=== PATIENT | male | born 1945 ===

== ENCOUNTER 2018-11-03 22:43 | Inpatient (IN) | payer MEDICAID, MEDICARE ==
--- NOTE | 2018-11-04 00:43 | ED PDOC ---
Lower Extremity Pain/Injury Time Seen by Provider: 11/04/18 00:15 Chief Complaint (Nursing): Lower Extremity Problem/Injury Chief Complaint (Provider): left heel pain History Per: Patient, Family History/Exam Limitations: no limitations Onset/Duration Of Symptoms: Days (1 week) Current Symptoms Are (Timing): Still Present Additional Complaint(s): 73 y/o male history of diabetes presents for evaluation of left heel pain x 1 week. Patient states he has been in [place] doing work and feels his shoes were rubbing against his heel; states since then he notices worsening pain with yellow drainage. Patient states area also feels numb as of today. Denies fever, nausea/vomiting, chest pain, shortness of breath, palpitations, changes in bowel movements, urinary symptoms. Past Medical History Reviewed: Historical Data, Nursing Documentation, Vital Signs Vital Signs: Last Vital Signs Temp 98.5 F 11/03/18 22:52 Pulse 92 H 11/03/18 22:52 Resp 16 11/03/18 22:52 BP 189/65 H 11/03/18 22:52 Pulse Ox 98 11/03/18 22:52 - Medical History PMH: Diabetes, HTN, Hypercholesterolemia, Pancreatitis, Pneumonia ([facility] OCTOBER 2017), Chronic Kidney Disease (RENAL INSUFFICIENCY) - Surgical History Surgical History: Endoscopy - Family History Family History: States: Unknown Family Hx - Immunization History Hx Tetanus Toxoid Vaccination: Yes Hx Influenza Vaccination: No Hx Pneumococcal Vaccination: Yes - Home Medications Home Medications: Ambulatory Orders Medication Instructions Recorded Sitagliptin Phos/Metformin HCl 1 tab PO BID 03/27/16 [Janumet 50-1,000 mg Tablet] Insulin Detemir [Levemir] 20 unit SC DAILY 01/10/18 Brinzolamide [Azopt] 1 drop RIGHTEYE Q12 11/04/18 Insulin Lispro [humALOG] 10 unit SC AC 11/04/18 Latanoprost [Xalatan] 1 drop EACHEYE HS 11/04/18 Losartan [Cozaar] 25 mg PO DAILY 11/04/18 - Allergies Allergies/Adverse Reactions: Allergies Allergy/AdvReac Type Severity Reaction Status Date / Time No Known Allergies Allergy Verified 11/04/18 03:40 Review of Systems ROS Statement: Except As Marked, All Systems Reviewed And Found Negative Musculoskeletal: Positive for: Foot Pain Physical Exam - Reviewed Nursing Documentation Reviewed: Yes Vital Signs Reviewed: Yes - Physical Exam Appears: Positive for: Well, Non-toxic, No Acute Distress Head Exam: Positive for: ATRAUMATIC, NORMAL INSPECTION, NORMOCEPHALIC Skin: Positive for: Normal Color Eye Exam: Positive for: Normal appearance ENT: Positive for: Normal ENT Inspection Cardiovascular/Chest: Positive for: Regular Rate, Rhythm Respiratory: Positive for: Normal Breath Sounds Pulses-Dorsalis Pedis (L): 2+ Pulses-Dorsalis Pedis (R): 2+ Pulses-Post. Tibialis (L): 2+ Pulses-Post. Tibialis (R): 2+ Extremity: Positive for: Normal ROM, Pedal Edema (left. [id number] necrotic ulceration posterior left heel with + purulent drainage noted. + surrounding tenderness, edema.), Other Neurological/Psych: Positive for: Awake, Alert, Oriented (x3) - Laboratory Results Result Diagrams: 11/04/18 00:55 11/04/18 00:55 - ECG ECG: Positive for: Viewed By Me (reviewed by ED attending) ECG Rhythm: Positive for: Sinus Rhythm O2 Sat by Pulse Oximetry: 98 - Radiology X-Ray: Viewed By Me X-Ray Interpretation: No Acute Disease - Progress ED Course And Treament: -accucheck -cbc -cmp -lactic acid -blood cultures -ekg -left foot xray -left lower extremity venous duplex -cxr -IV NS bolus -IV insulin -PO tylenol -podiatry consult EXAM: US for Deep Venous Thrombosis, left Lower Extremity. CLINICAL HISTORY: Lt leg swelling and pain, foot bandaged with pain TECHNIQUE: Real-time ultrasound scan of the veins of the left lower extremity with color Doppler flow, spectral waveform analysis and compression. COMPARISON: None provided. FINDINGS: DEEP VEINS: The common femoral, superficial femoral, and popliteal veins are echolucent and compressible. There is normal color Doppler flow throughout. The visualized calf veins appear patent. SUPERFICIAL VEINS: The visualized greater saphenous vein is patent. SOFT TISSUES: No popliteal fossa cyst or other abnormalities. IMPRESSION: No deep venous thrombosis evident on left lower extremity examination Patient evaluated by Dr. Bunrett, podiatry resident on-call, recommends admission for IV abx. IV Vanco, IV zosyn ordered in ED Case discussed with Juan Carlos Salazar NP, medical service on-call, for admission Disposition - Clinical Impression Clinical Impression: Hyperglycemia, Diabetic infection of left foot - Disposition Disposition Time: 02:00 Condition: FAIR
[2018-11-04 01:17] LABS: BASO # 0.1 K/uL (0.0-0.2); BASO % 0.7 % (0.0-2.0); EOS # 0.1 K/uL (0.0-0.7); HEMOGLOBIN 12.6 g/dL (12.0-18.0); LYMPH # 2.3 K/uL (1.0-4.3); MEAN CELL VOLUME 87.2 fl (80.0-94.0); MEAN CORPUSCULAR HEMOGLOBIN 29.8 pg (27.0-31.0); MEAN CORPUSCULAR HGB CONC 34.2 g/dL (33.0-37.0); MEAN PLATELET VOLUME 8.4 fl (7.2-11.7); MONO # 0.5 K/uL (0.0-0.8); MONO % 7.4 % (0.0-10.0); NEUT # 4.2 K/uL (1.8-7.0); NEUT % 57.9 % (50.0-75.0); RBC 4.23 Mil/uL (4.40-5.90); RED CELL DISTRIBUTION WIDTH 14.7 % (11.5-14.5); WHITE BLOOD COUNT 7.3 K/uL (4.8-10.8)
[2018-11-04] MEDS ORDERED: Sodium Chloride 0.9% 1,000 ML IV STA (01:27)
[2018-11-04 01:28] LABS: ALB/GLOB RATIO 1.2 (1.0-2.1); ALBUMIN 4.1 g/dL (3.5-5.0); ALT/SGPT 18 U/L (21-72); AST/SGOT 26 U/L (17-59); BLOOD UREA NITROGEN 24 mg/dl (9-20); CALCIUM 9.3 mg/dL (8.4-10.2); GFR NON-AFRICAN AMERICAN > 60
[2018-11-04] MEDS ORDERED: Piperacillin/Tazobact 3.375 GM in Sodium Chloride 0.9% 100 ML IV ONE (01:41)
[2018-11-04] MEDS ORDERED: Piperacillin/Tazobact 3.375 gm Inj IVPB ONE ×2 (01:48→23:06)
[2018-11-04] MEDS ORDERED: Vancomycin 1 g Inj ONE (01:48)
--- NOTE | 2018-11-04 01:52 | CP.PCM.CON ---
History of Present Illness - History of Present Illness History of Present Illness: Podiatry consult note for Dr. Fernandez, 73 y/o male patient with PMHx of HTN, Hypercholesterolemia, Pancreatitis, Chronic Kidney Disease was seen and evaluated in the Emergency Department due to complaints of left heel ulceration. Patient states he noticed the ulcer to the heel about 1 week ago while in [facility]. Patient states he works there and noticed his shoes rubbing against the wound. Patient states he noticed worsening pain with purulent discharge. Patient went to a medical clinic in [facility] and was given a local injection. Patient denies any antibiotic use. Patient returned from his 8 hour journey and came directly to the airport. Patient complains of subjective fevers, cough and chills, but denies nausea/vomiting, chest pain, shortness of breath, palpitations, changes in bowel movements, or urinary symptoms. PMHx: as above PSHx: Endoscopy Allergies: NKDA Review of Systems - Review of Systems All systems: reviewed and no additional remarkable complaints except Review of Systems: As per HPI Past Patient History - Past Medical History & Family History Past Medical History?: Yes - Past Social History Smoking Status: Never Smoked - CARDIAC Hx Hypercholesterolemia: Yes Hx Hypertension: Yes - PULMONARY Hx Pneumonia: Yes (STATE OCTOBER 2017) - HEENT Hx HEENT Problems: Yes Hx Cataracts: Yes (IOL) Other/Comment: RETINA DISEASE RIGHT EYE VERY POOR VISION - RENAL Hx Chronic Kidney Disease: Yes (RENAL INSUFFICIENCY) - ENDOCRINE/METABOLIC Hx Endocrine Disorders: Yes Hx Diabetes Mellitus Type 2: Yes - GASTROINTESTINAL Hx Pancreatitis: Yes - GENITOURINARY/GYNECOLOGICAL Hx Genitourinary Disorders: Yes Hx Prostate Problems: Yes - PSYCHIATRIC Hx Substance Use: No - ANESTHESIA Hx Anesthesia: No Meds Allergies/Adverse Reactions: Allergies Allergy/AdvReac Type Severity Reaction Status Date / Time No Known Allergies Allergy Verified 11/04/18 03:40 - Medications Medications: Current Medications Sodium Chloride (Sodium Chloride 0.9%) 1,000 mls @ 1,000 mls/hr IV .Q1H STA Stop: 11/04/18 02:26 Vancomycin HCl 1 gm/ Sodium (Chloride) 250 mls @ 166.667 mls/hr IVPB STAT STA; Protocol Stop: 11/04/18 03:10 Piperacillin Sod/Tazobactam (Sod 3.375 gm/ Sodium Chloride) 100 mls @ 100 mls/hr IV ONCE ONE; Protocol Stop: 11/04/18 02:40 Physical Exam - Constitutional Appears: Well, Non-toxic, No Acute Distress - Head Exam Head Exam: ATRAUMATIC, NORMOCEPHALIC - Extremities Exam Additional comments: B/L Lower Extremity Exam: VASC: DP and PT 1/4 bilaterally likely secondary to edema, Cap refill < 3 secon ds to all digits, moderate +2 pitting edema noted to the left lower extremity, positive jovanna wound erythema noted. Temperature gradient warm to warm from proximal to distal on the left NEURO: Protective sensation diminished bilaterally DERM: deep tissue injury ulceration noted to the left heel measuring approximately 4.3 cm X 3 cm X 0.1 cm ulcer with 80% necrotic base and fibro- granular wound edges, positive malodor, positive purulent drainage, no probe to bone, no other lesions or signs of infection noted to bilateral lower extremities MSK: Muscle power 4/5 to all groups b/l, no gross deformities appreciated - Neurological Exam Neurological exam: Alert, Oriented x3 - Psychiatric Exam Psychiatric exam: Normal Affect, Normal Mood Results - Vital Signs Recent Vital Signs: Last Vital Signs Temp 98.5 F 11/03/18 22:52 Pulse 92 H 11/03/18 22:52 Resp 16 11/03/18 22:52 BP 189/65 H 11/03/18 22:52 Pulse Ox 98 11/04/18 00:45 - Labs Result Diagrams: 11/04/18 00:55 11/04/18 00:55 Labs: Laboratory Results - last 24 hr 11/04/18 11/04/18 11/04/18 00:55 00:55 00:55 WBC 7.3 RBC 4.23 L Hgb 12.6 Hct 36.9 MCV 87.2 MCH 29.8 MCHC 34.2 RDW 14.7 H Plt Count 243 MPV 8.4 Neut % (Auto) 57.9 Lymph % (Auto) 32.0 [place] % (Auto) 7.4 Eos % (Auto) 2.0 Baso % (Auto) 0.7 Neut # (Auto) 4.2 Lymph # (Auto) 2.3 [place] # (Auto) 0.5 Eos # (Auto) 0.1 Baso # (Auto) 0.1 Sodium 133 Potassium 5.4 H Chloride 99 Carbon Dioxide 25 Anion Gap 14 BUN 24 H Creatinine 1.1 Est GFR ( Amer) > 60 Est GFR (Non-Af Amer) > 60 Random Glucose 474 H* Lactic Acid 1.4 Calcium 9.3 Total Bilirubin 0.9 AST 26 ALT 18 L Alkaline Phosphatase 123 Total Protein 7.4 Albumin 4.1 Globulin 3.4 Albumin/Globulin Ratio 1.2 Assessment & Plan - Assessment and Plan (Free Text) Assessment: 72 year old male patient seen and evaluated for left heel deep tissue injury and ulceration Plan: Patient seen and evaluated Plan discussed with Dr. Fernandez Chart, labs and vitals reviewed- elevated blood pressure and blood sugar upon arrival to ED, afebrile, absent leukocytosis WBC 7.3 ESR 62 (11/04/18) Ordered Left foot X-ray: no overt osteo noted, degenerative changes seen and to be clinically correlated Lower Extremity US: no deep venous thrombosis seen Duplex Bilaterally: normal duplex Obtained wound culture and gram stain Ordered Left foot MRI w/o contrast Continue IV Abx Continue management per primary team Left heel dressed with xerform, DSD; Ordered SSD for future debridements Will continue to follow while patient is in-house Possible debridement in [place] pending MRI result Thank you for this consult - Date & Time Date: 11/04/18 Time: 14:36
[2018-11-04] MEDS ORDERED: Insulin Regular 100 units/ml IV STA ×2 (03:37→22:27)
--- NOTE | 2018-11-04 08:29 | RAD ---
Date of service: 11/04/2018 HISTORY: admit COMPARISON: No prior. TECHNIQUE: 1 view obtained. FINDINGS: LUNGS: No active pulmonary disease. PLEURA: No significant pleural effusion identified, no pneumothorax apparent. CARDIOVASCULAR: No aortic atherosclerotic calcification present. Normal cardiac size. No pulmonary vascular congestion. OSSEOUS STRUCTURES: No significant abnormalities. VISUALIZED UPPER ABDOMEN: Normal. OTHER FINDINGS: None. IMPRESSION: No acute cardiopulmonary disease appreciated.
--- NOTE | 2018-11-04 08:37 | RAD ---
Date of service: 11/04/2018 PROCEDURE: Left Foot Radiographs. HISTORY: ulcer COMPARISON: None. TECHNIQUE: 3 views obtained. FINDINGS: BONES: No definite acute fracture. No dislocation. Gross degenerative changes seen the tibiotalar joint with partial flattening of the talar dome. Remaining joints reflect only limited degenerative related cortical sclerosis throughout the hindfoot midfoot and forefoot segments. No overt emphysematous soft tissue changes or deformity to identified patient's foot ulcer. No periosteal reaction or erosive changes are appreciated to suggest osteomyelitis in the periphery of the foot. Gross degenerative changes are appreciated at the anterior portion of the tibiotalar joint nevertheless. Clinically correlate further. Extensive vascular callus dorsal and plantar foot as well as anterior and posterior ankle soft tissues. JOINTS: As above. SOFT TISSUES: As above. OTHER FINDINGS: None. IMPRESSION: No overt pattern of osteomyelitis in the periphery of the right left foot although gross degenerative changes seen at the tibiotalar joint which are felt to be chronic. Clinically correlate further.
--- NOTE | 2018-11-04 13:01 | US ---
Date of service: 11/04/2018 HISTORY: pain, swelling. PRIORS: None. FINDINGS: 2-D, color and duplex Doppler analysis of the lower extremity venous circulation using routine protocol from the femoral veins through the popliteal veins. Venous compressibility: Normal. Flow and augmentation patterns: Normal. Visualized veins upper third of calf: Normal. López cyst: None. IMPRESSION: No sonographic or Doppler evidence for DVT in left lower extremity. Concordant findings (preliminary report) provided by JOHN BLACK.
--- NOTE | 2018-11-04 13:25 | US ---
Date of service: 11/04/2018 PROCEDURE: Duplex ultrasound of the bilateral lower extremity arteries. HISTORY: Left foot pain 1 week duration. No history of trauma assess vascular supply COMPARISON: None available. TECHNIQUE: Grayscale and duplex Doppler evaluation of the bilateral common femoral, superficial femoral, popliteal, posterior tibial and dorsalis pedis arteries was performed.. FINDINGS: RIGHT LOWER EXTREMITY: RIGHT COMMON FEMORAL ARTERY: Widely patent. Maximal flow velocity of 116.1 cm/s. RIGHT SUPERFICIAL FEMORAL ARTERY: Widely patent. Maximal flow velocity of 106.4 cm/s. RIGHT POPLITEAL ARTERY:Widely patent. Maximal flow velocity of 86.4 cm/s. RIGHT POSTERIOR TIBIAL ARTERY: Widely patent. Maximal flow velocity of 65.9 cm/s. RIGHT DORSALIS PEDIS ARTERY: Widely patent. Maximal flow velocity of 46.5 cm/s. LEFT LOWER EXTREMITY: LEFT COMMON FEMORAL ARTERY: Widely patent. Maximal flow velocity of 115.0 cm/s. LEFT SUPERFICIAL FEMORAL ARTERY: Widely patent. Maximal flow velocity of 06.0 cm/s. LEFT POPLITEAL ARTERY:Widely patent. Maximal flow velocity of 82.1 cm/s. LEFT POSTERIOR TIBIAL ARTERY: Widely patent. Maximal flow velocity of 101.7 cm/s. LEFT DORSALIS PEDIS ARTERY: Widely patent. Maximal flow velocity of 58.9 cm/s. OTHER FINDINGS: None. IMPRESSION: Normal Duplex Doppler of the bilateral lower extremity arteries.
--- NOTE | 2018-11-04 21:08 | CARD ---
APPROVED REPORT Date of service: 11/04/2018 EKG Measurement Heart [id number] <Conclusion> Normal sinus rhythm Normal ECG
[2018-11-04] MEDS ORDERED: Insulin Regular 100 units/ml ONE (21:26)
[2018-11-04] MEDS ORDERED: Insulin Regular 100 units/ml SC SCH (22:00)
[2018-11-04] MEDS: Piperacillin/Tazobact 3.375 GM in Sodium Chloride 0.9% 100 ML IVPB SCH (23:10)
[2018-11-05 00:39] VITALS: BMI 28.2
[2018-11-05] MEDS: Piperacillin/Tazobact 3.375 GM in Sodium Chloride 0.9% 100 ML IVPB SCH ×4 (05:17→22:00)
[2018-11-05 06:46] LABS: ALB/GLOB RATIO 1.1 (1.0-2.1); ALBUMIN 3.3 g/dL (3.5-5.0); ALT/SGPT 25 U/L (21-72); AST/SGOT 17 U/L (17-59); BLOOD UREA NITROGEN 24 mg/dl (9-20); CALCIUM 8.9 mg/dL (8.4-10.2); GFR NON-AFRICAN AMERICAN 60; HDL CHOLESTEROL 33 MG/DL (30-70)
[2018-11-05] MEDS: Insulin Regular 100 units/ml SC SCH ×4 (06:54→21:08)
[2018-11-05 06:55] LABS: BASO % 0.7 % (0.0-2.0); EOS # 0.3 K/uL (0.0-0.7); EOS % 3.6 % (0.0-4.0); HEMOGLOBIN 11.8 g/dL (12.0-18.0); LYMPH # 2.5 K/uL (1.0-4.3); LYMPH % 35.4 % (20.0-40.0); MEAN CELL VOLUME 86.9 fl (80.0-94.0); MEAN CORPUSCULAR HEMOGLOBIN 29.7 pg (27.0-31.0); MEAN CORPUSCULAR HGB CONC 34.2 g/dL (33.0-37.0); MEAN PLATELET VOLUME 8.1 fl (7.2-11.7); MONO # 0.6 K/uL (0.0-0.8); NEUT # 3.7 K/uL (1.8-7.0); NEUT % 52.3 % (50.0-75.0); NRBC % 0.1 % (0.0-0.0); RBC 3.97 Mil/uL (4.40-5.90); RED CELL DISTRIBUTION WIDTH 14.4 % (11.5-14.5)
[2018-11-05 06:57] LABS: LDL CHOLESTEROL 73 mg/dL (0-129)
--- NOTE | 2018-11-05 08:05 | CP.PCM.PN ---
Subjective - Date & Time of Evaluation Date of Evaluation: 11/05/18 Time of Evaluation: 08:02 - Subjective Subjective: Podiatry progress note for Dr. Fernandez, 73 y/o male patient with PMHx of HTN, Hypercholesterolemia, Pancreatitis, Chronic Kidney Disease was seen and evaluated at bedside due to complaints of left heel ulceration. Patient denies acute overnight events. Patient complains of subjective fevers, cough and chills, but denies nausea/vomiting, chest pain, shortness of breath, palpitations, changes in bowel movements, or urinary symptoms. Objective - Vital Signs/Intake and Output Vital Signs (last 24 hours): Temp Pulse Resp BP Pulse Ox 98.1 F 93 H 20 159/87 H 96 11/04/18 23:56 11/05/18 03:03 11/05/18 03:03 11/04/18 23:56 11/05/18 03:03 - Medications Medications: Current Medications Acetaminophen (Tylenol 325mg Tab) 650 mg PO Q6 PRN PRN Reason: Pain, Mild (1-3) Last Admin: 11/05/18 00:07 Dose: 650 mg Dorzolamide HCl (Trusopt) 1 drop OD Q12 YVONNE Piperacillin Sod/Tazobactam (Sod 3.375 gm/ Sodium Chloride) 100 mls @ 100 mls/hr IVPB Q6H [facility]; Protocol Last Admin: 11/05/18 05:17 Dose: 100 mls/hr Vancomycin HCl 1 gm/ Sodium (Chloride) 250 mls @ 166.667 mls/hr IVPB Q12H [facility]; Protocol Last Admin: 11/05/18 00:14 Dose: 166.667 mls/hr Insulin Detemir (Levemir) 30 units SC DAILY [facility] Insulin Human Regular (Humulin R) 0 units SC ACHS [facility]; Protocol Last Admin: 11/05/18 06:54 Dose: 3 units Latanoprost (Xalatan Opht) 1 drop OU HS [facility] Losartan Potassium (Cozaar) 25 mg PO DAILY [facility] Metformin HCl (Glucophage) 1,000 mg PO BIDWM [facility] Silver Sulfadiazine (Silvadene 1% 50 Gm) 1 applic TOP DAILY [facility] Sitagliptin Phosphate (Januvia) 50 mg PO BID [facility] - Labs Labs: 11/05/18 06:29 11/05/18 06:29 - Constitutional Appears: Well, Non-toxic - Head Exam Head Exam: ATRAUMATIC - Eye Exam Eye Exam: Normal appearance - ENT Exam ENT Exam: Mucous Membranes Moist - Cardiovascular Exam Cardiovascular Exam: REGULAR RHYTHM - Extremities Exam Additional comments: B/L Lower Extremity Exam: VASC: DP and PT 1/4 bilaterally likely secondary to edema, Cap refill < 3 seconds to all digits, moderate +2 pitting edema noted to the left lower extremity, positive jovanna wound erythema noted. Temperature gradient warm to warm from proximal to distal on the left NEURO: Protective sensation diminished bilaterally DERM: deep tissue injury ulceration noted to the left heel measuring approximately 4.3 cm X 3 cm X 0.1 cm ulcer with 80% necrotic base and fibro- granular wound edges, positive malodor, positive purulent drainage, no probe to bone, no other lesions or signs of infection noted to bilateral lower extremities MSK: Muscle power 4/5 to all groups b/l, no gross deformities appreciated - Neurological Exam Neurological Exam: Alert, Awake - Psychiatric Exam Psychiatric exam: Normal Affect Assessment and Plan - Assessment and Plan (Free Text) Assessment: 72 year old male patient seen and evaluated for left heel deep tissue injury with necrotic ulceration Plan: Patient seen and evaluated Plan discussed with Dr. Fernandez Chart, labs and vitals reviewed- elevated blood pressure and blood sugar upon arrival to ED, afebrile, absent leukocytosis WBC 7.3 ESR 62 (11/04/18) Ordered Left foot X-ray: no overt osteo noted, degenerative changes seen and to be clinically correlated Lower Extremity US: no deep venous thrombosis seen Duplex Bilaterally: normal duplex Obtained wound culture and gram stain- beta hemolytic step group B Left foot MRI w/o contrast; pending Continue IV Abx Continue management per primary team Left heel dressed with xerform, DSD; Ordered SSD for future debridements Will continue to follow while patient is in-house Possible debridement in [place] pending MRI result
[2018-11-05] MEDS: Insulin Detemir 100 Units/ml Inj SC SCH (08:42)
[2018-11-05] MEDS ORDERED: Patient's Own Med (Sitagliptin Phos/Metformin Hcl [Janumet 50-1,000 Mg Tablet] 1 TAB) PO SCH (09:00)
[2018-11-05] MEDS ORDERED: Insulin Detemir 100 Units/ml Inj SC SCH (09:00)
[2018-11-05] MEDS ORDERED: Patient's Own Med (Brinzolamide [Azopt] 1 DROP) RIGHTEYE SCH (09:00)
[2018-11-05] MEDS ORDERED: INSULIN DETEMIR 20 UNIT SC SCH (09:00)
[2018-11-05] MEDS: Silver Sulfadiazine 1% CREAM (50 gm) TOP SCH (12:30)
[2018-11-05] MEDS: Dorzolamide 2% Ophth Soln OD SCH ×2 (16:55→20:17)
[2018-11-05] MEDS: Latanoprost 0.005% Opht SOUTION OU SCH (21:09)
--- NOTE | 2018-11-06 03:02 | CP.PCM.HP ---
History of Present Illness - History of Present Illness History of Present Illness: CC: Left heel pain with wound and drainage. HPI: 73 y/o male with a PMH of DM2 presents to the ED for evaluation of heel pain with drainage x 1 week. Per the patient, he had been working outside in a pair of shoes that were loose. Due to this, the back part of the shoe rubbed against his heel, causing a wound with drainage. Podiatry was consulted for care of the affected foot. He is currently on Vancomycin and Zosyn. PMH: Diabetes (type 2), HTN, Hypercholesterolemia, Pancreatitis, Pneumonia, Chronic Kidney Disease (renal insufficiency). PSH: Endoscopy. Allergies: NKDA. Subjective Review of Systems: Reviewed and no additional remarkable complaints except pain to the left heel. Objective Appears: Anxious, Non-toxic, No Acute Distress. Head Exam: NORMAL INSPECTION, normocephalic. Eye Exam: Normal eye inspection, EOMI, PERRLA. Respiratory Exam: NORMAL BREATHING PATTERN, breath sounds clear bilaterally. Cardiovascular Exam: +S1, +S2. RRR. GI & Abdominal Exam: Soft, non-tender, non-distended. Neurological Exam: Alert, Awake, Oriented x3. Psychiatric exam: Normal mood. Calm and cooperative. Skin Exam: Left heel has an ulcerated, open area with purulent drainage noted. It is wrapped in a dressing at this time. Assessment/Impression/Plan: 1.) Infected Diabetic Foot Ulcer -Podiatry consult input appreciated. -Affected area wrapped at this time. -Lower extremity ultrasound showed no evidence of DVT. -Wound culture revealed Beta hemolytic strep Group B. -Continue Vanco and Zosyn. -Monitor for s/s infection. 2.) Hyperglycemia -Pt hyperglycemic overnight into the mid 400s. 8 units of IV insulin was given STAT, and the glucose dropped into the 250 range. -Hgb a1c 10.2. -On metformin + Januvia oral hypoglycemics. -Adjusted Levemir to 30 units daily. -Humulin R ordered using medium dose sliding scale, ACHS. Present on Admission - Present on Admission Any Indicators Present on Admission: No Past Patient History - Past Medical History & Family History Past Medical History?: Yes - Past Social History Smoking Status: Never Smoked - CARDIAC Hx Cardiac Disorders: Yes Hx Hypercholesterolemia: Yes Hx Hypertension: Yes - PULMONARY Hx Respiratory Disorders: Yes Hx Pneumonia: Yes (STATE OCTOBER 2017) - NEUROLOGICAL Hx Neurological Disorder: No - HEENT Hx HEENT Problems: Yes Hx Cataracts: Yes (IOL) Other/Comment: RETINA DISEASE RIGHT EYE VERY POOR VISION - RENAL Hx Chronic Kidney Disease: Yes (RENAL INSUFFICIENCY) - ENDOCRINE/METABOLIC Hx Endocrine Disorders: Yes Hx Diabetes Mellitus Type 2: Yes - HEMATOLOGICAL/ONCOLOGICAL Hx Blood Disorders: No - INTEGUMENTARY Hx Dermatological Problems: No - MUSCULOSKELETAL/RHEUMATOLOGICAL Hx Musculoskeletal Disorders: No Hx Falls: Yes - GASTROINTESTINAL Hx Gastrointestinal Disorders: Yes Hx Pancreatitis: Yes - GENITOURINARY/GYNECOLOGICAL Hx Genitourinary Disorders: Yes Hx Prostate Problems: Yes - PSYCHIATRIC Hx Psychophysiologic Disorder: No Hx Substance Use: No - SURGICAL HISTORY Hx Surgeries: Yes Other/Comment: Cataract sx, endoscopy - ANESTHESIA Hx Anesthesia: Yes Hx Anesthesia Reactions: No Meds Allergies/Adverse Reactions: Allergies Allergy/AdvReac Type Severity Reaction Status Date / Time No Known Allergies Allergy Verified 11/04/18 03:40 Results - Vital Signs Recent Vital Signs: Last Vital Signs Temp 97.7 F 11/05/18 23:52 Pulse 88 11/05/18 23:52 Resp 20 11/05/18 23:52 BP 158/84 H 11/05/18 23:52 Pulse Ox 97 11/05/18 23:52 - Labs Result Diagrams: 11/05/18 06:29 11/05/18 06:29 Labs: Laboratory Results - last 24 hr 11/05/18 11/05/18 11/05/18 05:23 06:29 06:29 WBC 7.0 RBC 3.97 L Hgb 11.8 L Hct 34.5 L MCV 86.9 MCH 29.7 MCHC 34.2 RDW 14.4 Plt Count 221 MPV 8.1 Neut % (Auto) 52.3 Lymph % (Auto) 35.4 [place] % (Auto) 8.0 Eos % (Auto) 3.6 Baso % (Auto) 0.7 Neut # (Auto) 3.7 Lymph # (Auto) 2.5 [place] # (Auto) 0.6 Eos # (Auto) 0.3 Baso # (Auto) 0.0 ESR 64 H Sodium Potassium Chloride Carbon Dioxide Anion Gap BUN Creatinine Est GFR ( Amer) Est GFR (Non-Af Amer) POC Glucose (mg/dL) 211 H Random Glucose Hemoglobin A1c Calcium Total Bilirubin AST ALT Alkaline Phosphatase C-Reactive Protein Total Protein Albumin Globulin Albumin/Globulin Ratio Triglycerides Cholesterol LDL Cholesterol Direct HDL Cholesterol Procalcitonin < 0.05 L 11/05/18 11/05/18 11/05/18 06:29 06:29 12:23 WBC RBC Hgb Hct MCV MCH MCHC RDW Plt Count MPV Neut % (Auto) Lymph % (Auto) [place] % (Auto) Eos % (Auto) Baso % (Auto) Neut # (Auto) Lymph # (Auto) [place] # (Auto) Eos # (Auto) Baso # (Auto) ESR Sodium 136 Potassium 4.1 Chloride 104 Carbon Dioxide 23 Anion Gap 13 BUN 24 H Creatinine 1.2 Est GFR ( Amer) > 60 Est GFR (Non-Af Amer) 60 POC Glucose (mg/dL) 268 H Random Glucose 225 H Hemoglobin A1c 10.2 H Calcium 8.9 Total Bilirubin 0.5 AST 17 D ALT 25 Alkaline Phosphatase 94 C-Reactive Protein 27.80 H Total Protein 6.3 Albumin 3.3 L Globulin 3.0 Albumin/Globulin Ratio 1.1 Triglycerides 85 Cholesterol 130 LDL Cholesterol Direct 73 HDL Cholesterol 33 Procalcitonin 11/05/18 11/05/18 16:27 20:55 WBC RBC Hgb Hct MCV MCH MCHC RDW Plt Count MPV Neut % (Auto) Lymph % (Auto) [place] % (Auto) Eos % (Auto) Baso % (Auto) Neut # (Auto) Lymph # (Auto) [place] # (Auto) Eos # (Auto) Baso # (Auto) ESR Sodium Potassium Chloride Carbon Dioxide Anion Gap BUN Creatinine Est GFR ( Amer) Est GFR (Non-Af Amer) POC Glucose (mg/dL) 212 H 129 H Random Glucose Hemoglobin A1c Calcium Total Bilirubin AST ALT Alkaline Phosphatase C-Reactive Protein Total Protein Albumin Globulin Albumin/Globulin Ratio Triglycerides Cholesterol LDL Cholesterol Direct HDL Cholesterol Procalcitonin Assessment & Plan (1) Diabetic infection of left foot Status: Acute (2) Hyperglycemia Status: Acute
[2018-11-06] MEDS: Piperacillin/Tazobact 3.375 GM in Sodium Chloride 0.9% 100 ML IVPB SCH ×4 (04:46→22:11)
[2018-11-06 06:39] LABS: BASO # 0.1 K/uL (0.0-0.2); BASO % 0.8 % (0.0-2.0); EOS # 0.4 K/uL (0.0-0.7); EOS % 4.6 % (0.0-4.0); HEMOGLOBIN 11.9 g/dL (12.0-18.0); LYMPH # 2.3 K/uL (1.0-4.3); LYMPH % 29.7 % (20.0-40.0); MEAN CORPUSCULAR HEMOGLOBIN 29.8 pg (27.0-31.0); MEAN CORPUSCULAR HGB CONC 34.2 g/dL (33.0-37.0); MEAN PLATELET VOLUME 7.8 fl (7.2-11.7); MONO # 0.5 K/uL (0.0-0.8); NEUT # 4.6 K/uL (1.8-7.0); NEUT % 58.9 % (50.0-75.0); RBC 4.01 Mil/uL (4.40-5.90); WHITE BLOOD COUNT 7.8 K/uL (4.8-10.8)
[2018-11-06 06:42] LABS: ALB/GLOB RATIO 1.1 (1.0-2.1); ALBUMIN 3.4 g/dL (3.5-5.0); ALT/SGPT 22 U/L (21-72); AST/SGOT 19 U/L (17-59); BLOOD UREA NITROGEN 23 mg/dl (9-20); CALCIUM 9.1 mg/dL (8.4-10.2); GFR NON-AFRICAN AMERICAN 54
[2018-11-06] MEDS: Insulin Regular 100 units/ml SC SCH ×4 (08:29→21:20)
[2018-11-06] MEDS: Insulin Detemir 100 Units/ml Inj SC SCH (08:30)
[2018-11-06] MEDS: Silver Sulfadiazine 1% CREAM (50 gm) TOP SCH (08:30)
[2018-11-06] MEDS: Dorzolamide 2% Ophth Soln OD SCH ×2 (08:31→21:07)
--- NOTE | 2018-11-06 09:59 | CP.PCM.PN ---
Subjective - Date & Time of Evaluation Date of Evaluation: 11/06/18 Time of Evaluation: 09:55 - Subjective Subjective: Podiatry progress note for Dr. Fernandez, 73 y/o male patient with PMHx of HTN, Hypercholesterolemia, Pancreatitis, Chronic Kidney Disease was seen and evaluated at bedside due to complaints of left heel ulceration. Patient denies acute overnight events. Patient complains of subjective fevers, cough and chills, but denies nausea/vomiting, chest pain, shortness of breath, palpitations, changes in bowel movements, or urinary symptoms. Objective - Vital Signs/Intake and Output Vital Signs (last 24 hours): Temp Pulse Resp BP Pulse Ox 97.7 F 80 20 158/83 H 98 11/06/18 08:17 11/06/18 08:17 11/06/18 08:17 11/06/18 08:17 11/06/18 08:17 - Medications Medications: Current Medications Acetaminophen (Tylenol 325mg Tab) 650 mg PO Q6 PRN PRN Reason: Pain, Mild (1-3) Last Admin: 11/05/18 20:16 Dose: 650 mg Dorzolamide HCl (Trusopt) 1 drop OD Q12 [facility] Last Admin: 11/06/18 08:31 Dose: 1 drop Piperacillin Sod/Tazobactam (Sod 3.375 gm/ Sodium Chloride) 100 mls @ 100 mls/hr IVPB Q6H [facility]; Protocol Last Admin: 11/06/18 04:46 Dose: 100 mls/hr Vancomycin HCl 1 gm/ Sodium (Chloride) 250 mls @ 166.667 mls/hr IVPB Q12H [facility]; Protocol Last Admin: 11/06/18 00:19 Dose: 166.667 mls/hr Insulin Detemir (Levemir) 30 units SC DAILY [facility] Last Admin: 11/06/18 08:30 Dose: 30 units Insulin Human Regular (Humulin R) 0 units SC ACHS [facility]; Protocol Last Admin: 11/06/18 08:29 Dose: Not Given Latanoprost (Xalatan Opht) 1 drop OU HS [facility] Last Admin: 11/05/18 21:09 Dose: 1 drop Losartan Potassium (Cozaar) 25 mg PO DAILY [facility] Last Admin: 11/06/18 08:28 Dose: 25 mg Metformin HCl (Glucophage) 1,000 mg PO BIDWM [facility] Last Admin: 11/06/18 08:28 Dose: 1,000 mg Silver Sulfadiazine (Silvadene 1% 50 Gm) 1 applic TOP DAILY [facility] Last Admin: 11/06/18 08:30 Dose: 1 applic Sitagliptin Phosphate (Januvia) 50 mg PO BID [facility] Last Admin: 11/06/18 08:28 Dose: 50 mg - Labs Labs: 11/06/18 06:10 11/06/18 06:10 - Constitutional Appears: Well, Non-toxic - Head Exam Head Exam: ATRAUMATIC - Eye Exam Eye Exam: Normal appearance - ENT Exam ENT Exam: Mucous Membranes Moist - Respiratory Exam Respiratory Exam: NORMAL BREATHING PATTERN - Cardiovascular Exam Cardiovascular Exam: REGULAR RHYTHM, +S1, +S2 - Extremities Exam Additional comments: B/L Lower Extremity Exam: VASC: DP and PT 1/4 bilaterally likely secondary to edema, Cap refill < 3 seconds to all digits, moderate +2 pitting edema noted to the left lower extremity, positive jovanna wound erythema noted. Temperature gradient warm to warm from proximal to distal on the left NEURO: Protective sensation diminished bilaterally DERM: deep tissue injury ulceration noted to the left heel measuring approximately 4.3 cm X 3 cm X 0.1 cm ulcer with 80% necrotic base and fibro- granular wound edges, no malodor, no purulent drainage, no probe to bone, no other lesions or signs of infection noted to bilateral lower extremities MSK: Muscle power 4/5 to all groups b/l, no gross deformities appreciated - Neurological Exam Neurological Exam: Alert, Normal Gait - Psychiatric Exam Psychiatric exam: Normal Affect Assessment and Plan - Assessment and Plan (Free Text) Assessment: 72 year old male patient seen and evaluated for left heel deep tissue injury with necrotic ulceration Plan: Patient seen and evaluated Plan discussed with Dr. Fernandez Chart, labs and vitals reviewed- elevated blood pressure and blood sugar upon arrival to ED, afebrile, absent leukocytosis WBC 7.3 ESR 62 (11/04/18) Ordered Left foot X-ray: no overt osteo noted, degenerative changes seen and to be clinically correlated Lower Extremity US: no deep venous thrombosis seen Duplex Bilaterally: normal duplex Obtained wound culture and gram stain- beta hemolytic step group B Left foot MRI w/o contrast; final read pending Continue IV Abx Continue management per primary team Left heel dressed with SSD DSD Will continue to follow while patient is in-house debridement in [place] pending MRI result- please provide medical clearance - patient scheduled for 8:15 am on 11/07.
[2018-11-06 11:40] LABS: INR 1.1
--- NOTE | 2018-11-06 12:41 | MRI ---
Date of service: 11/04/2018 PROCEDURE: MRI LEFT LOWER EXTREMITY OTHER THAN JOINT WITHOUT CONTRAST HISTORY: r/o osteo of calcaneus COMPARISON: Left foot radiographs 11/04/2018. TECHNIQUE: A noncontrast MR examination was performed as requested with multiplanar multisequential imaging submitted for interpretation. FINDINGS: No definitive signal change are appreciated throughout the midfoot/hindfoot to suggest osteomyelitis, including the calcaneus. Marked joint space narrowing is appreciated at the tibiotalar joint with trace joint effusion, prominent articular cortical sclerosis in variable subchondral cyst formation compatible with advanced osteoarthritis. Subchondral edema is appreciated on a at both sides of the joint with no fracture or definite subluxation appreciable grossly. Deformity of the anterior portion of the distal tibial articular surface may reflect osteonecrosis. Lesser degenerative changes are appreciated at the subtalar joint. Relatively prominent subcutaneous edema is appreciated in the soft tissues surrounding the ankle as well as overlying the dorsal foot and pattern suggests of cellulitis. No tendon tear is evident in the ankle flexor or extensor compartments including the perineal tendons. Achilles tendon is intact. Trace tenosynovitis is identified involving posterior tibial tendon. The plantar fascia is intact without tear. Mild edema is appreciate in the plantar foot muscle suspicious potential myositis of indeterminate origin including posttraumatic, inflammatory or potentially infectious. Clinically correlate further. IMPRESSION: 1. No definite MR pattern suggest osteomyelitis including the calcaneus. 2. 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 3. No acute fracture or subluxation. 4. Limited tenosynovitis left posterior tibial tendon. 5. Edematous changes seen in visualized plantar midfoot/hindfoot muscles in a pattern suspicious for myositis of either posttraumatic or inflammatory causes with infectious etiology not completely excluded. Clinically correlate further.
--- NOTE | 2018-11-06 16:14 | CARD ---
APPROVED REPORT Date of service: 11/06/2018 EXAM: Two-dimensional and M-mode echocardiogram with Doppler and color Doppler. Other Information Quality : AverageAverageRhythm : NSR Technically limited study due to body habitus. INDICATION Hypertension/HCVD 2D DIMENSIONS IVSd0.69 (0.7-1.1cm)LVDd3.42 (3.9-5.9cm) LVOT Diameter2.13 (1.8-2.4cm)PWd1.68 (0.7-1.1cm) LA Hmauli49 (18-58mL)LVDs2.34 (2.5-4.0cm) FS (%) 31.5 % M-Mode DIMENSIONS Left Atrium (MM)3.70 (2.5-4.0cm)Aortic Root3.40 (2.2-3.7cm) Aortic Cusp Exc.2.07 (1.5-2.0cm) Aortic Valve AoV Peak Mnduwoco016.9cm/sAoV VTI26.2cmAO Peak GR.4mmHg LVOT Peak Jhpyysgo93.7cm/sLVOT VTI22.24cmAO Mean GR.3mmHg SARI (VMAX)1.79xk6GSE (VTI)1.69cm2 Mitral Valve MV E Dqkmkdtf48.2cm/sMV DECEL [id number] A Ehwqgexa859.4cm/s MV CWS51osY/A ratio0.7MVA (PHT)3.36cm2 TDI Lateral E' Peak V7.01cm/sMedial E' Peak V5.38cm/sE/Lateral E'12.3 E/Medial E'16.0 Pulmonary Valve PV Peak Ppyrsmrk39.3cm/s LEFT VENTRICLE The left ventricle is normal size. There is normal left ventricular wall thickness. The left ventricular systolic function is normal. The estimated ejection fraction is 60-65% No regional wall motion abnormalities noted.. Transmitral Doppler flow pattern is Grade I-abnormal relaxation pattern. No left ventricle thrombus noted on this study. There is no ventricular septal defect visualized. There is no left ventricular aneurysm. There is no mass noted in the left ventricle. RIGHT VENTRICLE The right ventricle is normal size. There is normal right ventricular wall thickness. The right ventricular systolic function is normal. ATRIA The left atrium size is normal. The right atrium size is normal. The interatrial septum is intact with no evidence for an atrial septal defect. AORTIC VALVE The aortic valve is normal in structure. No aortic regurgitation is present. There is no aortic valvular stenosis. There is no aortic valvular vegetation. MITRAL VALVE The mitral valve is normal in structure. There is no evidence of mitral valve prolapse. There is no mitral valve stenosis. There is no mitral valve regurgitation noted. TRICUSPID VALVE The tricuspid valve is normal in structure. There is trace tricuspid valve regurgitation noted. RVSP is calculated at less than 20 mm Hg. There is no tricuspid valve prolapse or vegetation. There is no tricuspid valve stenosis. PULMONIC VALVE The pulmonary valve is normal in structure. There is no pulmonic valvular regurgitation. There is no pulmonic valvular stenosis. GREAT VESSELS The aortic root is normal in size. The ascending aorta is normal in size. The pulmonary artery is normal. The IVC is normal in size and collapses >50% with inspiration. PERICARDIAL EFFUSION There is no pericardial effusion. There is no pleural effusion. <Conclusion> The estimated ejection fraction is 60-65% Transmitral Doppler flow pattern is Grade I-abnormal relaxation pattern. The left atrium size is normal. There is trace tricuspid valve regurgitation noted. RVSP is calculated at less than 20 mm Hg.
--- NOTE | 2018-11-06 17:36 | CP.PCM.CON ---
History of Present Illness - History of Present Illness History of Present Illness: 73 y/o male patient with PMHx of HTN, Hypercholesterolemia, Pancreatitis, Chronic Kidney Disease was seen and evaluated at bedside due to complaints of left heel ulceration. Patient denies acute overnight events. Patient complains of subjective fevers, cough and chills, but denies nausea/vomiting, chest pain, shortness of breath, palpitations, changes in bowel movements, or urinary symptoms. Past Patient History - Past Medical History & Family History Past Medical History?: Yes - Past Social History Smoking Status: Never Smoked - CARDIAC Hx Cardiac Disorders: Yes Hx Hypercholesterolemia: Yes Hx Hypertension: Yes - PULMONARY Hx Respiratory Disorders: Yes Hx Pneumonia: Yes ([facility] OCT[facility] 2017) - NEUROLOGICAL Hx Neurological Disorder: No - HEENT Hx HEENT Problems: Yes Hx Cataracts: Yes (IOL) Other/Comment: RETINA DISEASE RIGHT EYE VERY POOR VISION - RENAL Hx Chronic Kidney Disease: Yes (RENAL INSUFFICIENCY) - ENDOCRINE/METABOLIC Hx Endocrine Disorders: Yes Hx Diabetes Mellitus Type 2: Yes - HEMATOLOGICAL/ONCOLOGICAL Hx Blood Disorders: No - INTEGUMENTARY Hx Dermatological Problems: No - MUSCULOSKELETAL/RHEUMATOLOGICAL Hx Musculoskeletal Disorders: No Hx Falls: Yes - GASTROINTESTINAL Hx Gastrointestinal Disorders: Yes Hx Pancreatitis: Yes - GENITOURINARY/GYNECOLOGICAL Hx Genitourinary Disorders: Yes Hx Prostate Problems: Yes - PSYCHIATRIC Hx Psychophysiologic Disorder: No Hx Substance Use: No - SURGICAL HISTORY Hx Surgeries: Yes Other/Comment: Cataract sx, endoscopy - ANESTHESIA Hx Anesthesia: Yes Hx Anesthesia Reactions: No Meds Allergies/Adverse Reactions: Allergies Allergy/AdvReac Type Severity Reaction Status Date / Time No Known Allergies Allergy Verified 11/04/18 03:40 - Medications Medications: Current Medications Acetaminophen (Tylenol 325mg Tab) 650 mg PO Q6 PRN PRN Reason: Pain, Mild (1-3) Last Admin: 11/06/18 11:31 Dose: 650 mg Dorzolamide HCl (Trusopt) 1 drop OD Q12 [facility] Last Admin: 11/06/18 08:31 Dose: 1 drop Piperacillin Sod/Tazobactam (Sod 3.375 gm/ Sodium Chloride) 100 mls @ 100 mls/hr IVPB Q6H [facility]; Protocol Last Admin: 11/06/18 16:23 Dose: 100 mls/hr Vancomycin HCl 1 gm/ Sodium (Chloride) 250 mls @ 166.667 mls/hr IVPB Q12H [facility]; Protocol Last Admin: 11/06/18 11:27 Dose: 166.667 mls/hr Insulin Detemir (Levemir) 30 units SC DAILY [facility] Last Admin: 11/06/18 08:30 Dose: 30 units Insulin Human Regular (Humulin R) 0 units SC ACHS [facility]; Protocol Last Admin: 11/06/18 16:24 Dose: Not Given Latanoprost (Xalatan Opht) 1 drop OU HS [facility] Last Admin: 11/05/18 21:09 Dose: 1 drop Losartan Potassium (Cozaar) 25 mg PO DAILY [facility] Last Admin: 11/06/18 08:28 Dose: 25 mg Metformin HCl (Glucophage) 1,000 mg PO BIDWM [facility] Last Admin: 11/06/18 16:24 Dose: 1,000 mg Silver Sulfadiazine (Silvadene 1% 50 Gm) 1 applic TOP DAILY [facility] Last Admin: 11/06/18 08:30 Dose: 1 applic Sitagliptin Phosphate (Januvia) 50 mg PO BID [facility] Last Admin: 11/06/18 16:24 Dose: 50 mg Results - Vital Signs Recent Vital Signs: Last Vital Signs Temp 98.1 F 11/06/18 16:10 Pulse 85 11/06/18 16:10 Resp 20 11/06/18 16:10 BP 124/73 11/06/18 16:10 Pulse Ox 96 11/06/18 16:10 - Labs Result Diagrams: 11/06/18 06:10 11/06/18 06:10 Labs: Laboratory Results - last 24 hr 11/05/18 11/06/18 11/06/18 20:55 05:11 06:10 WBC 7.8 RBC 4.01 L Hgb 11.9 L Hct 34.9 L MCV 87.0 MCH 29.8 MCHC 34.2 RDW 15.0 H Plt Count 245 MPV 7.8 Neut % (Auto) 58.9 Lymph % (Auto) 29.7 Nicholas % (Auto) 6.0 Eos % (Auto) 4.6 H Baso % (Auto) 0.8 Neut # (Auto) 4.6 Lymph # (Auto) 2.3 Nicholas # (Auto) 0.5 Eos # (Auto) 0.4 Baso # (Auto) 0.1 PT INR Sodium Potassium Chloride Carbon Dioxide Anion Gap BUN Creatinine Est GFR ( Amer) Est GFR (Non-Af Amer) POC Glucose (mg/dL) 129 H 86 Random Glucose Calcium Total Bilirubin AST ALT Alkaline Phosphatase Total Protein Albumin Globulin Albumin/Globulin Ratio 11/06/18 11/06/18 11/06/18 06:10 11:10 11:14 WBC RBC Hgb Hct MCV MCH MCHC RDW Plt Count MPV Neut % (Auto) Lymph % (Auto) [place] % (Auto) Eos % (Auto) Baso % (Auto) Neut # (Auto) Lymph # (Auto) [place] # (Auto) Eos # (Auto) Baso # (Auto) PT 12.0 INR 1.1 Sodium 138 Potassium 3.9 Chloride 105 Carbon Dioxide 25 Anion Gap 12 BUN 23 H Creatinine 1.3 Est GFR ( Amer) > 60 Est GFR (Non-Af Amer) 54 POC Glucose (mg/dL) 180 H Random Glucose 86 Calcium 9.1 Total Bilirubin 0.5 AST 19 ALT 22 Alkaline Phosphatase 84 Total Protein 6.5 Albumin 3.4 L Globulin 3.1 Albumin/Globulin Ratio 1.1 11/06/18 16:17 WBC RBC Hgb Hct MCV MCH MCHC RDW Plt Count MPV Neut % (Auto) Lymph % (Auto) [place] % (Auto) Eos % (Auto) Baso % (Auto) Neut # (Auto) Lymph # (Auto) Nicholas # (Auto) Eos # (Auto) Baso # (Auto) PT INR Sodium Potassium Chloride Carbon Dioxide Anion Gap BUN Creatinine Est GFR ( Amer) Est GFR (Non-Af Amer) POC Glucose (mg/dL) 142 H Random Glucose Calcium Total Bilirubin AST ALT Alkaline Phosphatase Total Protein Albumin Globulin Albumin/Globulin Ratio
--- NOTE | 2018-11-06 17:36 | CP.PCM.CON ---
History of Present Illness - History of Present Illness History of Present Illness: rx in progress will follow Past Patient History - Past Medical History & Family History Past Medical History?: Yes - Past Social History Smoking Status: Never Smoked - CARDIAC Hx Cardiac Disorders: Yes Hx Hypercholesterolemia: Yes Hx Hypertension: Yes - PULMONARY Hx Respiratory Disorders: Yes Hx Pneumonia: Yes ([facility] OCT[facility] 2017) - NEUROLOGICAL Hx Neurological Disorder: No - HEENT Hx HEENT Problems: Yes Hx Cataracts: Yes (IOL) Other/Comment: RETINA DISEASE RIGHT EYE VERY POOR VISION - RENAL Hx Chronic Kidney Disease: Yes (RENAL INSUFFICIENCY) - ENDOCRINE/METABOLIC Hx Endocrine Disorders: Yes Hx Diabetes Mellitus Type 2: Yes - HEMATOLOGICAL/ONCOLOGICAL Hx Blood Disorders: No - INTEGUMENTARY Hx Dermatological Problems: No - MUSCULOSKELETAL/RHEUMATOLOGICAL Hx Musculoskeletal Disorders: No Hx Falls: Yes - GASTROINTESTINAL Hx Gastrointestinal Disorders: Yes Hx Pancreatitis: Yes - GENITOURINARY/GYNECOLOGICAL Hx Genitourinary Disorders: Yes Hx Prostate Problems: Yes - PSYCHIATRIC Hx Psychophysiologic Disorder: No Hx Substance Use: No - SURGICAL HISTORY Hx Surgeries: Yes Other/Comment: Cataract sx, endoscopy - ANESTHESIA Hx Anesthesia: Yes Hx Anesthesia Reactions: No Meds Allergies/Adverse Reactions: Allergies Allergy/AdvReac Type Severity Reaction Status Date / Time No Known Allergies Allergy Verified 11/04/18 03:40 - Medications Medications: Current Medications Acetaminophen (Tylenol 325mg Tab) 650 mg PO Q6 PRN PRN Reason: Pain, Mild (1-3) Last Admin: 11/05/18 20:16 Dose: 650 mg Dorzolamide HCl (Trusopt) 1 drop OD Q12 [facility] Last Admin: 11/05/18 20:17 Dose: 1 drop Piperacillin Sod/Tazobactam (Sod 3.375 gm/ Sodium Chloride) 100 mls @ 100 mls/hr IVPB Q6H [facility]; Protocol Last Admin: 11/05/18 16:55 Dose: 100 mls/hr Vancomycin HCl 1 gm/ Sodium (Chloride) 250 mls @ 166.667 mls/hr IVPB Q12H [facility]; Protocol Last Admin: 11/05/18 12:30 Dose: 166.667 mls/hr Insulin Detemir (Levemir) 30 units SC DAILY [facility] Last Admin: 11/05/18 08:42 Dose: 30 units Insulin Human Regular (Humulin R) 0 units SC ACHS [facility]; Protocol Last Admin: 11/05/18 21:08 Dose: Not Given Latanoprost (Xalatan Opht) 1 drop OU HS [facility] Last Admin: 11/05/18 21:09 Dose: 1 drop Losartan Potassium (Cozaar) 25 mg PO DAILY [facility] Last Admin: 11/05/18 08:41 Dose: 25 mg Metformin HCl (Glucophage) 1,000 mg PO BIDWM [facility] Last Admin: 11/05/18 16:53 Dose: 1,000 mg Silver Sulfadiazine (Silvadene 1% 50 Gm) 1 applic TOP DAILY [facility] Last Admin: 11/05/18 12:30 Dose: Not Given Sitagliptin Phosphate (Januvia) 50 mg PO BID [facility] Last Admin: 11/05/18 16:54 Dose: 50 mg Results - Vital Signs Recent Vital Signs: Last Vital Signs Temp 98.6 F 11/05/18 16:10 Pulse 60 11/05/18 16:10 Resp 20 11/05/18 16:10 BP 165/84 H 11/05/18 16:10 Pulse Ox 97 11/05/18 16:10 - Labs Result Diagrams: 11/05/18 06:29 11/05/18 06:29 Labs: Laboratory Results - last 24 hr 11/04/18 11/04/18 11/04/18 21:12 22:08 23:27 WBC RBC Hgb Hct MCV MCH MCHC RDW Plt Count MPV Neut % (Auto) Lymph % (Auto) [place] % (Auto) Eos % (Auto) Baso % (Auto) Neut # (Auto) Lymph # (Auto) [place] # (Auto) Eos # (Auto) Baso # (Auto) ESR Sodium Potassium Chloride Carbon Dioxide Anion Gap BUN Creatinine Est GFR ( Amer) Est GFR (Non-Af Amer) POC Glucose (mg/dL) 446 H* 448 H* 250 H Random Glucose Hemoglobin A1c Calcium Total Bilirubin AST ALT Alkaline Phosphatase C-Reactive Protein Total Protein Albumin Globulin Albumin/Globulin Ratio Triglycerides Cholesterol LDL Cholesterol Direct HDL Cholesterol Procalcitonin 11/05/18 11/05/18 11/05/18 05:23 06:29 06:29 WBC 7.0 RBC 3.97 L Hgb 11.8 L Hct 34.5 L MCV 86.9 MCH 29.7 MCHC 34.2 RDW 14.4 Plt Count 221 MPV 8.1 Neut % (Auto) 52.3 Lymph % (Auto) 35.4 [place] % (Auto) 8.0 Eos % (Auto) 3.6 Baso % (Auto) 0.7 Neut # (Auto) 3.7 Lymph # (Auto) 2.5 [place] # (Auto) 0.6 Eos # (Auto) 0.3 Baso # (Auto) 0.0 ESR 64 H Sodium Potassium Chloride Carbon Dioxide Anion Gap BUN Creatinine Est GFR ( Amer) Est GFR (Non-Af Amer) POC Glucose (mg/dL) 211 H Random Glucose Hemoglobin A1c Calcium Total Bilirubin AST ALT Alkaline Phosphatase C-Reactive Protein Total Protein Albumin Globulin Albumin/Globulin Ratio Triglycerides Cholesterol LDL Cholesterol Direct HDL Cholesterol Procalcitonin < 0.05 L 11/05/18 11/05/18 11/05/18 06:29 06:29 12:23 WBC RBC Hgb Hct MCV MCH MCHC RDW Plt Count MPV Neut % (Auto) Lymph % (Auto) [place] % (Auto) Eos % (Auto) Baso % (Auto) Neut # (Auto) Lymph # (Auto) [place] # (Auto) Eos # (Auto) Baso # (Auto) ESR Sodium 136 Potassium 4.1 Chloride 104 Carbon Dioxide 23 Anion Gap 13 BUN 24 H Creatinine 1.2 Est GFR ( Amer) > 60 Est GFR (Non-Af Amer) 60 POC Glucose (mg/dL) 268 H Random Glucose 225 H Hemoglobin A1c 10.2 H Calcium 8.9 Total Bilirubin 0.5 AST 17 D ALT 25 Alkaline Phosphatase 94 C-Reactive Protein 27.80 H Total Protein 6.3 Albumin 3.3 L Globulin 3.0 Albumin/Globulin Ratio 1.1 Triglycerides 85 Cholesterol 130 LDL Cholesterol Direct 73 HDL Cholesterol 33 Procalcitonin 11/05/18 11/05/18 16:27 20:55 WBC RBC Hgb Hct MCV MCH MCHC RDW Plt Count MPV Neut % (Auto) Lymph % (Auto) [place] % (Auto) Eos % (Auto) Baso % (Auto) Neut # (Auto) Lymph # (Auto) [place] # (Auto) Eos # (Auto) Baso # (Auto) ESR Sodium Potassium Chloride Carbon Dioxide Anion Gap BUN Creatinine Est GFR ( Amer) Est GFR (Non-Af Amer) POC Glucose (mg/dL) 212 H 129 H Random Glucose Hemoglobin A1c Calcium Total Bilirubin AST ALT Alkaline Phosphatase C-Reactive Protein Total Protein Albumin Globulin Albumin/Globulin Ratio Triglycerides Cholesterol LDL Cholesterol Direct HDL Cholesterol Procalcitonin
--- NOTE | 2018-11-06 19:31 | CP.PCM.CON ---
History of Present Illness - History of Present Illness History of Present Illness: I was asked to evaluate patient by Dr Antoine. Patient seen [id number] PATIENT IS A 73 YEAR OLD MALE WITH HTN, DM, WHO PRESENTS WITH HEEL ULCER. The patient states symptoms became progressive after walking and developed a heel u lcer. He requires OR debridement. he denies chest pain or dyspnea. Review of Systems - Constitutional Constitutional: absent: As Per HPI, Anorexia, Chills, Daytime Sleepiness, Excessive Sweating, Fatigue, Fever, Frequent Falls, Headache, Increased Appetite, Lethargy, Malaise, Night Sweats, Snoring, Sleep Apnea, Weight Gain, Weight Loss, Weakness, Other - EENT Eyes: absent: As Per HPI, Blind Spots, Blurred Vision, Change in Vision, Decreased Night Vision, Diplopia, Discharge, Dry Eye, Exophthalmos, Floaters, Irritation, Itchy Eyes, Loss of Peripheral Vision, Pain, Photophobia, Requires C orrective Lenses, Sees Flashes, Spots in Vision, Tunnel Vision, Other Visual Disturbances, Loss of Vision, Other Ears: absent: As Per HPI, Decreased Hearing, Ear Discharge, Ear Pain, Tinnitus, Abnormal Hearing, Disequilibrium, Dizziness, Other Nose/Mouth/Throat: absent: As Per HPI, Epistaxis, Nasal Congestion, Nasal Discharge, Nasal Obstruction, Nasal Trauma, Nose Pain, Post Nasal Drip, Sinus Pain, Sinus Pressure, Bleeding Gums, Change in Voice, Dental Pain, Dry Mouth, Dysphagia, Halitosis, Hoarsness, Lip Swelling, Mouth Lesions, Mouth Pain, Od ynophagia, Sore Throat, Throat Swelling, Tongue Swelling, Facial Pain, Neck Pain, Neck Mass, Other - Cardiovascular Cardiovascular: Leg Ulcers - Respiratory Respiratory: absent: As Per HPI, Cough, Dyspnea, Hemoptysis, Dyspnea on Exertion, Wheezing, Snoring, Stridor, Pain on Inspiration, Chest Congestion, Excessive Mucous Production, Change in Mucous Color, Pain with Coughing, Other - Gastrointestinal Gastrointestinal: absent: As Per HPI, Abdominal Pain, Belching, Bloating, Change in Bowel Habits, Change in Stool Character, Coffee Ground Emesis, Constipation, Cramping, Diarrhea, Dyspepsia, Dysphagia, Early Satiety, Excessive Flatus, Fecal Incontinence, Heartburn, Hematemesis, Hematochezia, Loose Stools, Melena, Nausea, Odynophagia, Temesmus, Vomiting, Other - Genitourinary Genitourinary: absent: As Per HPI, Change in Urinary Stream, Difficulty Urinating, Dysuria, Flank Pain, Hematuria, Pyuria, Nocturia, Urinary Incontinence, Urinary Frequency, Urinary Hesitance, Urinary Urgency, Voiding Freq/Small Amts, Freq UTI, Hx Renal/Bladder Calculi, Hx /Renal Surgery, Bladder Distension, Other - Musculoskeletal Musculoskeletal: absent: As Per HPI, Abnormal Gait, Arthralgias, Atrophy, Back Pain, Deformity, Joint Swelling, Limited Range of Motion, Loss of Height, Muscle Cramps, Muscle Weakness, Myalgias, Neck Pain, Numbness, Radiating Pain into Limb, Stiffness, Tingling, Other - Integumentary Integumentary: absent: As Per HPI, Acne, Alopecia, Bleeding Lesions, Change in Hair, Change in Nails, Change in Pigmentation, Changing Lesions, Dry Skin, Erythema, Furuncle, Hirsutism, Lesions, New Lesions, Non-Healing Lesions, Photosensitivity, Pruritus, Rash, Skin Pain, Skin Ulcer, Sores, Striae, Swelling, Unusual Bruising, Wounds, Jaundice, Other - Neurological Neurological: absent: As Per HPI, Abnormal Gait, Abnormal Hearing, Abnormal Movements, Abnormal Speech, Behavioral Changes, Burning Sensations, Confusion, C onvulsions, Disequilibrium, Dizziness, Numbness, Focal Weakness, Frequent Falls, Headaches, Lack of Coordination, Loss of Vision, Memory Loss, Paresthesias, Radicular Pain, Restless Legs, Sensory Deficit, Syncope, Tingling, Tremor, Vertigo, Weakness, Other Visual Disturbances, Other - Psychiatric Psychiatric: absent: As Per HPI, Abnormal Sleep Pattern, Anhedonia, Anxiety, Auditory Hallucinations, Behavioral Changes, Change in Appetite, Change in Libido, Confusion, Depression, Difficulty Concentrating, Hallucinations, Homicidal Ideation, Hopelessness, Irritability, Memory Loss, Mood Swings, Panic Attacks, Paranoia, Suicidal Ideation, Visual Hallucinations, Tactile Hallucinations, Other - Endocrine Endocrine: absent: As Per HPI, Change in Body Appearance, Change in Libido, Cold Intolorance, Deepening of Voice, Excessive Sweating, Fatigue, Flushing, Heat Intolorance, Increase in Ring/Shoe/Hat Size, Palpitations, Polydipsia, Polyphagia, Polyuria, Other - Hematologic/Lymphatic Hematologic: absent: As Per HPI, Easy Bleeding, Easy Bruising, Lymphadenopathy, Other Past Patient History - Past Medical History & Family History Past Medical History?: Yes - Past Social History Smoking Status: Never Smoked - CARDIAC Hx Cardiac Disorders: Yes Hx Hypercholesterolemia: Yes Hx Hypertension: Yes - PULMONARY Hx Respiratory Disorders: Yes Hx Pneumonia: Yes ([facility] OCTOBER 2017) - NEUROLOGICAL Hx Neurological Disorder: No - HEENT Hx HEENT Problems: Yes Hx Cataracts: Yes (IOL) Other/Comment: RETINA DISEASE RIGHT EYE VERY POOR VISION - RENAL Hx Chronic Kidney Disease: Yes (RENAL INSUFFICIENCY) - ENDOCRINE/METABOLIC Hx Endocrine Disorders: Yes Hx Diabetes Mellitus Type 2: Yes - HEMATOLOGICAL/ONCOLOGICAL Hx Blood Disorders: No - INTEGUMENTARY Hx Dermatological Problems: No - MUSCULOSKELETAL/RHEUMATOLOGICAL Hx Musculoskeletal Disorders: No Hx Falls: Yes - GASTROINTESTINAL Hx Gastrointestinal Disorders: Yes Hx Pancreatitis: Yes - GENITOURINARY/GYNECOLOGICAL Hx Genitourinary Disorders: Yes Hx Prostate Problems: Yes - PSYCHIATRIC Hx Psychophysiologic Disorder: No Hx Substance Use: No - SURGICAL HISTORY Hx Surgeries: Yes Other/Comment: Cataract sx, endoscopy - ANESTHESIA Hx Anesthesia: Yes Hx Anesthesia Reactions: No Meds Allergies/Adverse Reactions: Allergies Allergy/AdvReac Type Severity Reaction Status Date / Time No Known Allergies Allergy Verified 11/04/18 03:40 - Medications Medications: Current Medications Acetaminophen (Tylenol 325mg Tab) 650 mg PO Q6 PRN PRN Reason: Pain, Mild (1-3) Last Admin: 11/06/18 11:31 Dose: 650 mg Dorzolamide HCl (Trusopt) 1 drop OD Q12 [facility] Last Admin: 11/06/18 08:31 Dose: 1 drop Piperacillin Sod/Tazobactam (Sod 3.375 gm/ Sodium Chloride) 100 mls @ 100 mls/hr IVPB Q6H [facility]; Protocol Last Admin: 11/06/18 16:23 Dose: 100 mls/hr Vancomycin HCl 1 gm/ Sodium (Chloride) 250 mls @ 166.667 mls/hr IVPB Q12H [facility]; Protocol Last Admin: 11/06/18 11:27 Dose: 166.667 mls/hr Insulin Detemir (Levemir) 30 units SC DAILY [facility] Last Admin: 11/06/18 08:30 Dose: 30 units Insulin Human Regular (Humulin R) 0 units SC ACHS [facility]; Protocol Last Admin: 11/06/18 16:24 Dose: Not Given Latanoprost (Xalatan Opht) 1 drop OU HS [facility] Last Admin: 11/05/18 21:09 Dose: 1 drop Losartan Potassium (Cozaar) 25 mg PO DAILY [facility] Last Admin: 11/06/18 08:28 Dose: 25 mg Metformin HCl (Glucophage) 1,000 mg PO BIDWM [facility] Last Admin: 11/06/18 16:24 Dose: 1,000 mg Silver Sulfadiazine (Silvadene 1% 50 Gm) 1 applic TOP DAILY [facility] Last Admin: 11/06/18 08:30 Dose: 1 applic Sitagliptin Phosphate (Januvia) 50 mg PO BID [facility] Last Admin: 11/06/18 16:24 Dose: 50 mg Physical Exam - Constitutional Appears: Non-toxic - Head Exam Head Exam: NORMAL INSPECTION - Eye Exam Eye Exam: Normal appearance - ENT Exam ENT Exam: Mucous Membranes Moist - Neck Exam Neck exam: Positive for: Full Rom - Respiratory Exam Respiratory Exam: NORMAL BREATHING PATTERN - Cardiovascular Exam Cardiovascular Exam: REGULAR RHYTHM - GI/Abdominal Exam GI & Abdominal Exam: Normal Bowel Sounds - Rectal Exam Rectal Exam: Deferred - Extremities Exam Extremities exam: Negative for: pedal edema - Back Exam Back exam: NORMAL INSPECTION - Neurological Exam Neurological exam: Alert, Oriented x3 - Psychiatric Exam Psychiatric exam: Normal Affect - Skin Skin Exam: Normal Color Results - Vital Signs Recent Vital Signs: Last Vital Signs Temp 98.1 F 11/06/18 16:10 Pulse 85 11/06/18 16:10 Resp 20 11/06/18 16:10 BP 124/73 11/06/18 16:10 Pulse Ox 96 11/06/18 16:10 - Labs Result Diagrams: 11/06/18 06:10 11/06/18 06:10 Labs: Laboratory Results - last 24 hr 11/05/18 11/06/18 11/06/18 20:55 05:11 06:10 WBC 7.8 RBC 4.01 L Hgb 11.9 L Hct 34.9 L MCV 87.0 MCH 29.8 MCHC 34.2 RDW 15.0 H Plt Count 245 MPV 7.8 Neut % (Auto) 58.9 Lymph % (Auto) 29.7 [place] % (Auto) 6.0 Eos % (Auto) 4.6 H Baso % (Auto) 0.8 Neut # (Auto) 4.6 Lymph # (Auto) 2.3 [place] # (Auto) 0.5 Eos # (Auto) 0.4 Baso # (Auto) 0.1 PT INR Sodium Potassium Chloride Carbon Dioxide Anion Gap BUN Creatinine Est GFR ( Amer) Est GFR (Non-Af Amer) POC Glucose (mg/dL) 129 H 86 Random Glucose Calcium Total Bilirubin AST ALT Alkaline Phosphatase Total Protein Albumin Globulin Albumin/Globulin Ratio 11/06/18 11/06/18 11/06/18 06:10 11:10 11:14 WBC RBC Hgb Hct MCV MCH MCHC RDW Plt Count MPV Neut % (Auto) Lymph % (Auto) [place] % (Auto) Eos % (Auto) Baso % (Auto) Neut # (Auto) Lymph # (Auto) [place] # (Auto) Eos # (Auto) Baso # (Auto) PT 12.0 INR 1.1 Sodium 138 Potassium 3.9 Chloride 105 Carbon Dioxide 25 Anion Gap 12 BUN 23 H Creatinine 1.3 Est GFR ( Amer) > 60 Est GFR (Non-Af Amer) 54 POC Glucose (mg/dL) 180 H Random Glucose 86 Calcium 9.1 Total Bilirubin 0.5 AST 19 ALT 22 Alkaline Phosphatase 84 Total Protein 6.5 Albumin 3.4 L Globulin 3.1 Albumin/Globulin Ratio 1.1 11/06/18 16:17 WBC RBC Hgb Hct MCV MCH MCHC RDW Plt Count MPV Neut % (Auto) Lymph % (Auto) [place] % (Auto) Eos % (Auto) Baso % (Auto) Neut # (Auto) Lymph # (Auto) [place] # (Auto) Eos # (Auto) Baso # (Auto) PT INR Sodium Potassium Chloride Carbon Dioxide Anion Gap BUN Creatinine Est GFR ( Amer) Est GFR (Non-Af Amer) POC Glucose (mg/dL) 142 H Random Glucose Calcium Total Bilirubin AST ALT Alkaline Phosphatase Total Protein Albumin Globulin Albumin/Globulin Ratio - EKG Data EKG Interpreted by: Myself EKG shows normal: Sinus rhythm Assessment & Plan (1) Diabetic infection of left foot Assessment and Plan: patient is scheduled for a low risk procedure. There is no cardiac contraindication. he is medically optimized. Status: Acute (2) HTN (hypertension) Assessment and Plan: blood pressure control Status: Acute
[2018-11-06] MEDS: Latanoprost 0.005% Opht SOUTION OU SCH (22:12)
--- NOTE | 2018-11-06 22:26 | CP.PCM.PN ---
Subjective - Date & Time of Evaluation Date of Evaluation: 11/06/18 Time of Evaluation: 11:00 - Subjective Subjective: patient seen and examined at bedside no complaints offered at this time patient pending podiatry intervention. h/o uncontrolled dm, HTN asymptomatic denies chest pain, sob, palpitations, fever, chills Objective - Vital Signs/Intake and Output Vital Signs (last 24 hours): Temp Pulse Resp BP Pulse Ox 98.1 F 85 20 124/73 96 11/06/18 16:10 11/06/18 16:10 11/06/18 16:10 11/06/18 16:10 11/06/18 16:10 - Medications Medications: Current Medications Acetaminophen (Tylenol 325mg Tab) 650 mg PO Q6 PRN PRN Reason: Pain, Mild (1-3) Last Admin: 11/06/18 11:31 Dose: 650 mg Dorzolamide HCl (Trusopt) 1 drop OD Q12 [facility] Last Admin: 11/06/18 21:07 Dose: 1 drop Piperacillin Sod/Tazobactam (Sod 3.375 gm/ Sodium Chloride) 100 mls @ 100 mls/hr IVPB Q6H [facility]; Protocol Last Admin: 11/06/18 22:11 Dose: 100 mls/hr Vancomycin HCl 1 gm/ Sodium (Chloride) 250 mls @ 166.667 mls/hr IVPB Q12H [facility]; Protocol Last Admin: 11/06/18 11:27 Dose: 166.667 mls/hr Insulin Detemir (Levemir) 30 units SC DAILY [facility] Last Admin: 11/06/18 08:30 Dose: 30 units Insulin Human Regular (Humulin R) 0 units SC ACHS [facility]; Protocol Last Admin: 11/06/18 21:20 Dose: Not Given Latanoprost (Xalatan Opht) 1 drop OU HS [facility] Last Admin: 11/06/18 22:12 Dose: 1 drop Losartan Potassium (Cozaar) 25 mg PO DAILY [facility] Last Admin: 11/06/18 08:28 Dose: 25 mg Metformin HCl (Glucophage) 1,000 mg PO BIDWM [facility] Last Admin: 11/06/18 16:24 Dose: 1,000 mg Silver Sulfadiazine (Silvadene 1% 50 Gm) 1 applic TOP DAILY [facility] Last Admin: 11/06/18 08:30 Dose: 1 applic Sitagliptin Phosphate (Januvia) 50 mg PO BID [facility] Last Admin: 11/06/18 16:24 Dose: 50 mg - Labs Labs: 11/06/18 06:10 11/06/18 06:10 PT 12.0 Seconds (9.8-13.1) 11/06/18 11:10 INR 1.1 11/06/18 11:10 - Constitutional Appears: Non-toxic, No Acute Distress - Head Exam Head Exam: NORMAL INSPECTION - Eye Exam Eye Exam: Normal appearance - Neck Exam Neck Exam: Normal Inspection - Respiratory Exam Respiratory Exam: NORMAL BREATHING PATTERN - Cardiovascular Exam Cardiovascular Exam: +S1, +S2 - GI/Abdominal Exam GI & Abdominal Exam: Soft - Neurological Exam Neurological Exam: Alert, Awake, Oriented x3 - Psychiatric Exam Psychiatric exam: Normal Affect, Normal Mood - Skin Skin Exam: Normal Color, Warm Assessment and Plan (1) Diabetic infection of left foot Status: Acute (2) Diabetes Status: Acute (3) HTN (hypertension) Status: Acute - Assessment and Plan (Free Text) Plan: available diagnostic data reviewed monitor labs monitor vitals patient scheduled for OR for debridement Cardiology consult requested, seen and examined patient is medically optimized for procedure rest of plan as ordered
--- NOTE | 2018-11-06 23:23 | CP.PCM.CON ---
History of Present Illness - History of Present Illness History of Present Illness: 73 y/o male with a PMH of DM2 presents to the ED for evaluation of heel pain with drainage x 1 week. Patient states he was in [place] working outside in a pair of shoes that were loose. Due to this, the back part of the shoe rubbed ag ainst his heel, causing a wound with drainage. ID was consulted for care of the affected foot. He is currently on Vancomycin and Zosyn. PMH: Diabetes (type 2), HTN, Hypercholesterolemia, Pancreatitis, Pneumonia, Chronic Kidney Disease (renal insufficiency). PSH: Endoscopy. Allergies: NKDA. Review of Systems - Review of Systems All systems: reviewed and no additional remarkable complaints except - Constitutional Constitutional: As Per HPI - EENT Eyes: absent: As Per HPI, Blind Spots, Blurred Vision, Change in Vision, Decreased Night Vision, Diplopia, Discharge, Dry Eye, Exophthalmos, Floaters, Irritation, Itchy Eyes, Loss of Peripheral Vision, Pain, Photophobia, Requires Corrective Lenses, Sees Flashes, Spots in Vision, Tunnel Vision, Other Visual Disturbances, Loss of Vision, Other Ears: absent: As Per HPI, Decreased Hearing, Ear Discharge, Ear Pain, Tinnitus, Abnormal Hearing, Disequilibrium, Dizziness, Other Nose/Mouth/Throat: absent: As Per HPI, Epistaxis, Nasal Congestion, Nasal Discharge, Nasal Obstruction, Nasal Trauma, Nose Pain, Post Nasal Drip, Sinus Pain, Sinus Pressure, Bleeding Gums, Change in Voice, Dental Pain, Dry Mouth, Dysphagia, Halitosis, Hoarsness, Lip Swelling, Mouth Lesions, Mouth Pain, Odynophagia, Sore Throat, Throat Swelling, Tongue Swelling, Facial Pain, Neck Pain, Neck Mass, Other - Cardiovascular Cardiovascular: absent: As Per HPI, Acrocyanosis, Chest Pain, Chest Pain at Rest, Chest Pain with Activity, Claudication, Diaphoresis, Dyspnea, Dyspnea on Exertion, Edema, Irregular Heart Rhythm, Pain Radiating to Arm/Neck/Jaw, Leg Edema, Leg Ulcers, Lightheadedness, Orthopnea, Palpitations, Paroxysmal Nocturnal Dyspnea, Pedal Edema, Radiating Pain, Rapid Heart Rate, Slow Heart Rate, Syncope, Other - Respiratory Respiratory: absent: As Per HPI, Cough, Dyspnea, Hemoptysis, Dyspnea on Exertion, Wheezing, Snoring, Stridor, Pain on Inspiration, Chest Congestion, Excessive Mucous Production, Change in Mucous Color, Pain with Coughing, Other - Gastrointestinal Gastrointestinal: absent: As Per HPI, Abdominal Pain, Belching, Bloating, Change in Bowel Habits, Change in Stool Character, Coffee Ground Emesis, Constipation, Cramping, Diarrhea, Dyspepsia, Dysphagia, Early Satiety, Excessive Flatus, Fecal Incontinence, Heartburn, Hematemesis, Hematochezia, Loose Stools, Melena, Nausea, Odynophagia, Temesmus, Vomiting, Other - Genitourinary Genitourinary: absent: As Per HPI, Change in Urinary Stream, Difficulty Urina ting, Dysuria, Flank Pain, Hematuria, Pyuria, Nocturia, Urinary Incontinence, Urinary Frequency, Urinary Hesitance, Urinary Urgency, Voiding Freq/Small Amts, Freq UTI, Hx Renal/Bladder Calculi, Hx /Renal Surgery, Bladder Distension, Other - Musculoskeletal Musculoskeletal: As Per HPI - Integumentary Integumentary: As Per HPI, Skin Pain, Wounds - Neurological Neurological: As Per HPI - Psychiatric Psychiatric: absent: As Per HPI, Abnormal Sleep Pattern, Anhedonia, Anxiety, Auditory Hallucinations, Behavioral Changes, Change in Appetite, Change in Libido, Confusion, Depression, Difficulty Concentrating, Hallucinations, Homicidal Ideation, Hopelessness, Irritability, Memory Loss, Mood Swings, Panic Attacks, Paranoia, Suicidal Ideation, Visual Hallucinations, Tactile Hallucinations, Other - Endocrine Endocrine: As Per HPI - Hematologic/Lymphatic Hematologic: As Per HPI Past Patient History - Past Medical History & Family History Past Medical History?: Yes - Past Social History Smoking Status: Never Smoked - CARDIAC Hx Cardiac Disorders: Yes Hx Hypercholesterolemia: Yes Hx Hypertension: Yes - PULMONARY Hx Respiratory Disorders: Yes Hx Pneumonia: Yes (STATE OCTOBER 2017) - NEUROLOGICAL Hx Neurological Disorder: No - HEENT Hx HEENT Problems: Yes Hx Cataracts: Yes (IOL) Other/Comment: RETINA DISEASE RIGHT EYE VERY POOR VISION - RENAL Hx Chronic Kidney Disease: Yes (RENAL INSUFFICIENCY) - ENDOCRINE/METABOLIC Hx Endocrine Disorders: Yes Hx Diabetes Mellitus Type 2: Yes - HEMATOLOGICAL/ONCOLOGICAL Hx Blood Disorders: No - INTEGUMENTARY Hx Dermatological Problems: No - MUSCULOSKELETAL/RHEUMATOLOGICAL Hx Musculoskeletal Disorders: No Hx Falls: Yes - GASTROINTESTINAL Hx Gastrointestinal Disorders: Yes Hx Pancreatitis: Yes - GENITOURINARY/GYNECOLOGICAL Hx Genitourinary Disorders: Yes Hx Prostate Problems: Yes - PSYCHIATRIC Hx Psychophysiologic Disorder: No Hx Substance Use: No - SURGICAL HISTORY Hx Surgeries: Yes Other/Comment: Cataract sx, endoscopy - ANESTHESIA Hx Anesthesia: Yes Hx Anesthesia Reactions: No Meds Allergies/Adverse Reactions: Allergies Allergy/AdvReac Type Severity Reaction Status Date / Time No Known Allergies Allergy Verified 11/04/18 03:40 - Medications Medications: Current Medications Acetaminophen (Tylenol 325mg Tab) 650 mg PO Q6 PRN PRN Reason: Pain, Mild (1-3) Last Admin: 11/06/18 11:31 Dose: 650 mg Dorzolamide HCl (Trusopt) 1 drop OD Q12 [facility] Last Admin: 11/06/18 21:07 Dose: 1 drop Piperacillin Sod/Tazobactam (Sod 3.375 gm/ Sodium Chloride) 100 mls @ 100 mls/h r IVPB Q6H [facility]; Protocol Last Admin: 11/06/18 22:11 Dose: 100 mls/hr Vancomycin HCl 1 gm/ Sodium (Chloride) 250 mls @ 166.667 mls/hr IVPB Q12H [facility]; Protocol Last Admin: 11/06/18 11:27 Dose: 166.667 mls/hr Insulin Detemir (Levemir) 30 units SC DAILY [facility] Last Admin: 11/06/18 08:30 Dose: 30 units Insulin Human Regular (Humulin R) 0 units SC ACHS [facility]; Protocol Last Admin: 11/06/18 21:20 Dose: Not Given Latanoprost (Xalatan Opht) 1 drop OU HS [facility] Last Admin: 11/06/18 22:12 Dose: 1 drop Losartan Potassium (Cozaar) 25 mg PO DAILY [facility] Last Admin: 11/06/18 08:28 Dose: 25 mg Metformin HCl (Glucophage) 1,000 mg PO BIDWM [facility] Last Admin: 11/06/18 16:24 Dose: 1,000 mg Silver Sulfadiazine (Silvadene 1% 50 Gm) 1 applic TOP DAILY [facility] Last Admin: 11/06/18 08:30 Dose: 1 applic Sitagliptin Phosphate (Januvia) 50 mg PO BID [facility] Last Admin: 11/06/18 16:24 Dose: 50 mg Physical Exam - Constitutional Appears: Non-toxic, No Acute Distress, Chronically Ill - Head Exam Head Exam: ATRAUMATIC, NORMAL INSPECTION, NORMOCEPHALIC - Eye Exam Eye Exam: EOMI, Normal appearance, PERRL Pupil Exam: NORMAL ACCOMODATION, PERRL - ENT Exam ENT Exam: Mucous Membranes Moist, Normal Exam - Neck Exam Neck exam: Positive for: Normal Inspection - Respiratory Exam Respiratory Exam: Clear to Auscultation Bilateral, NORMAL BREATHING PATTERN - Cardiovascular Exam Cardiovascular Exam: REGULAR RHYTHM - GI/Abdominal Exam GI & Abdominal Exam: Normal Bowel Sounds, Soft. absent: Tenderness - Rectal Exam Rectal Exam: Deferred - Exam Exam: NORMAL INSPECTION - Extremities Exam Extremities exam: Positive for: normal capillary refill, pedal edema, tenderness, pedal pulses present. Negative for: calf tenderness, joint sw elling, normal inspection Additional comments: eschar / large unstageable ulcer left heel posterior aspect - Back Exam Back exam: NORMAL INSPECTION - Neurological Exam Neurological exam: Alert, CN II-XII Intact, Normal Gait, Oriented x3, Reflexes Normal - Psychiatric Exam Psychiatric exam: Normal Affect, Normal Mood - Skin Skin Exam: Dry, Intact, Normal Color, Warm Results - Vital Signs Recent Vital Signs: Last Vital Signs Temp 98.1 F 11/06/18 16:10 Pulse 85 11/06/18 16:10 Resp 20 11/06/18 16:10 BP 124/73 11/06/18 16:10 Pulse Ox 96 11/06/18 16:10 - Labs Result Diagrams: 11/06/18 06:10 11/06/18 06:10 Labs: Laboratory Results - last 24 hr 11/06/18 11/06/18 11/06/18 05:11 06:10 06:10 WBC 7.8 RBC 4.01 L Hgb 11.9 L Hct 34.9 L MCV 87.0 MCH 29.8 MCHC 34.2 RDW 15.0 H Plt Count 245 MPV 7.8 Neut % (Auto) 58.9 Lymph % (Auto) 29.7 [place] % (Auto) 6.0 Eos % (Auto) 4.6 H Baso % (Auto) 0.8 Neut # (Auto) 4.6 Lymph # (Auto) 2.3 [place] # (Auto) 0.5 Eos # (Auto) 0.4 Baso # (Auto) 0.1 PT INR Sodium 138 Potassium 3.9 Chloride 105 Carbon Dioxide 25 Anion Gap 12 BUN 23 H Creatinine 1.3 Est GFR ( Amer) > 60 Est GFR (Non-Af Amer) 54 POC Glucose (mg/dL) 86 Random Glucose 86 Calcium 9.1 Total Bilirubin 0.5 AST 19 ALT 22 Alkaline Phosphatase 84 Total Protein 6.5 Albumin 3.4 L Globulin 3.1 Albumin/Globulin Ratio 1.1 11/06/18 11/06/18 11/06/18 11:10 11:14 16:17 WBC RBC Hgb Hct MCV MCH MCHC RDW Plt Count MPV Neut % (Auto) Lymph % (Auto) [place] % (Auto) Eos % (Auto) Baso % (Auto) Neut # (Auto) Lymph # (Auto) [place] # (Auto) Eos # (Auto) Baso # (Auto) PT 12.0 INR 1.1 Sodium Potassium Chloride Carbon Dioxide Anion Gap BUN Creatinine Est GFR ( Amer) Est GFR (Non-Af Amer) POC Glucose (mg/dL) 180 H 142 H Random Glucose Calcium Total Bilirubin AST ALT Alkaline Phosphatase Total Protein Albumin Globulin Albumin/Globulin Ratio 11/06/18 21:11 WBC RBC Hgb Hct MCV MCH MCHC RDW Plt Count MPV Neut % (Auto) Lymph % (Auto) [place] % (Auto) Eos % (Auto) Baso % (Auto) Neut # (Auto) Lymph # (Auto) [place] # (Auto) Eos # (Auto) Baso # (Auto) PT INR Sodium Potassium Chloride Carbon Dioxide Anion Gap BUN Creatinine Est GFR ( Amer) Est GFR (Non-Af Amer) POC Glucose (mg/dL) 93 Random Glucose Calcium Total Bilirubin AST ALT Alkaline Phosphatase Total Protein Albumin Globulin Albumin/Globulin Ratio Assessment & Plan (1) Diabetes Status: Acute (2) Diabetic infection of left foot Status: Acute (3) HTN (hypertension) Status: Acute (4) Hyperglycemia Status: Acute - Assessment and Plan (Free Text) Assessment: large left heel ulcer s/p traumatic pressure injury in an elderly diabetic male 'Reccomend vascular studies as well as MRI to r/o OM 'IV antibiotics in progress May need assisted IV antibiotics await cukltures
[2018-11-07] MEDS: Piperacillin/Tazobact 3.375 GM in Sodium Chloride 0.9% 100 ML IVPB SCH ×4 (05:00→22:48)
[2018-11-07] MEDS: Insulin Regular 100 units/ml SC SCH ×4 (07:31→22:41)
--- NOTE | 2018-11-07 07:34 | CP.PCM.PN ---
Subjective - Date & Time of Evaluation Date of Evaluation: 11/07/18 Time of Evaluation: 07:32 - Subjective Subjective: Podiatry progress note for Dr. Fernandez, 73 y/o male patient with PMHx of HTN, Hypercholesterolemia, Pancreatitis, Chronic Kidney Disease was seen and evaluated at bedside due to complaints of left heel ulceration. Patient denies acute overnight events. Patient complains of subjective fevers, cough and chills, but denies nausea/vomiting, chest pain, shortness of breath, palpitations, changes in bowel movements, or urinary symptoms. Admits to being NPO, is aware of OR today. Objective - Vital Signs/Intake and Output Vital Signs (last 24 hours): Temp Pulse Resp BP Pulse Ox 98.5 F 94 H 20 165/88 H 97 11/06/18 23:41 11/06/18 23:41 11/06/18 23:41 11/06/18 23:41 11/06/18 23:41 - Medications Medications: Current Medications Acetaminophen (Tylenol 325mg Tab) 650 mg PO Q6 PRN PRN Reason: Pain, Mild (1-3) Last Admin: 11/06/18 11:31 Dose: 650 mg Dorzolamide HCl (Trusopt) 1 drop OD Q12 [facility] Last Admin: 11/06/18 21:07 Dose: 1 drop Piperacillin Sod/Tazobactam (Sod 3.375 gm/ Sodium Chloride) 100 mls @ 100 mls/hr IVPB Q6H [facility]; Protocol Last Admin: 11/07/18 05:00 Dose: 100 mls/hr Vancomycin HCl 1 gm/ Sodium (Chloride) 250 mls @ 166.667 mls/hr IVPB Q12H [facility]; Protocol Last Admin: 11/07/18 00:07 Dose: 166.667 mls/hr Insulin Detemir (Levemir) 30 units SC DAILY [facility] Last Admin: 11/06/18 08:30 Dose: 30 units Insulin Human Regular (Humulin R) 0 units SC ACHS [facility]; Protocol Last Admin: 11/07/18 07:31 Dose: Not Given Latanoprost (Xalatan Opht) 1 drop OU HS [facility] Last Admin: 11/06/18 22:12 Dose: 1 drop Losartan Potassium (Cozaar) 25 mg PO DAILY [facility] Last Admin: 11/06/18 08:28 Dose: 25 mg Metformin HCl (Glucophage) 1,000 mg PO BIDWM [facility] Last Admin: 11/06/18 16:24 Dose: 1,000 mg Silver Sulfadiazine (Silvadene 1% 50 Gm) 1 applic TOP DAILY [facility] Last Admin: 11/06/18 08:30 Dose: 1 applic Sitagliptin Phosphate (Januvia) 50 mg PO BID [facility] Last Admin: 11/06/18 16:24 Dose: 50 mg - Labs Labs: 11/06/18 06:10 11/06/18 06:10 PT 12.0 Seconds (9.8-13.1) 11/06/18 11:10 INR 1.1 11/06/18 11:10 - Constitutional Appears: Well, Non-toxic - Head Exam Head Exam: ATRAUMATIC - ENT Exam ENT Exam: Mucous Membranes Moist - Respiratory Exam Respiratory Exam: NORMAL BREATHING PATTERN - Cardiovascular Exam Cardiovascular Exam: REGULAR RHYTHM - Extremities Exam Additional comments: B/L Lower Extremity Exam: VASC: DP and PT 1/4 bilaterally likely secondary to edema, Cap refill < 3 seconds to all digits, moderate +2 pitting edema noted to the left lower extremity, positive jovanna wound erythema noted. Temperature gradient warm to warm from proximal to distal on the left NEURO: Protective sensation diminished bilaterally DERM: deep tissue injury ulceration noted to the left heel measuring approximately 4.3 cm X 3 cm X 0.1 cm ulcer with 80% necrotic base and fibro- granular wound edges, no malodor, no purulent drainage, no probe to bone, no other lesions or signs of infection noted to bilateral lower extremities MSK: Muscle power 4/5 to all groups b/l, no gross deformities appreciated - Neurological Exam Neurological Exam: Alert, Awake Assessment and Plan - Assessment and Plan (Free Text) Assessment: 72 year old male patient seen and evaluated for left heel deep tissue injury with necrotic ulceration Plan: Patient seen and evaluated Plan discussed with Dr. Fernandez Chart, labs and vitals reviewed- elevated blood pressure and blood sugar upon arrival to ED, afebrile, absent leukocytosis WBC 7.3 ESR 62 (11/04/18) Ordered Left foot X-ray: no overt osteo noted Lower Extremity US: no deep venous thrombosis seen Duplex Bilaterally: normal duplex Obtained wound culture and gram stain- beta hemolytic step group B Left foot MRI w/o contrast; no OM of calcaneus Continue IV Abx Continue management per primary team Left heel dressed with SSD DSD Will continue to follow while patient is in-house Debridement of ulcer today at 8:15, patient is medically optimized per Dr. Antoine. Npo status confirme
[2018-11-07] MEDS ORDERED: Propofol 10 mg/ml Inj (20 ML) ONE (08:02)
[2018-11-07] MEDS ORDERED: Etomidate 20 mg/10ml Inj IV ONE (08:02)
[2018-11-07] MEDS ORDERED: Bupivacaine 0.5% Inj(30mL) ONE (08:16)
[2018-11-07] MEDS ORDERED: Lidocaine 1% Inj (20ml) ONE (08:16)
[2018-11-07] MEDS: Insulin Detemir 100 Units/ml Inj SC SCH ×2 (08:20→11:28)
[2018-11-07] MEDS: Dorzolamide 2% Ophth Soln OD SCH ×3 (08:20→21:40)
[2018-11-07] MEDS: Silver Sulfadiazine 1% CREAM (50 gm) TOP SCH (08:20)
[2018-11-07] MEDS ORDERED: Midazolam 2 MG/2 ML VIAL ONE (08:58)
[2018-11-07] MEDS ORDERED: Bacitracin Ointment 30 GM TUBE ONE (09:40)
[2018-11-07] MEDS ORDERED: Silver Sulfadiazine 1% CREAM (50 gm) ONE (09:40)
[2018-11-07] MEDS ORDERED: HYDROmorphone 0.5 mg/0.5 ml ISec IVP PRN (09:52)
--- NOTE | 2018-11-07 09:53 | PCM.SURG1 ---
Surgeon's Initial Post Op Note - Surgeon's Notes Surgeon: Dr. Fernandez Pickle Water Pump Operator: Octavia Conway, PGy1 Harper young Type of Anesthesia: IV Sedation, Local Anesthesia Administered By: Dr. Oliva Pre-Operative Diagnosis: Left heel nonhealing, necrotic wound Operative Findings: see dictation. materials: none. injectibles: 15 cc of 1:1 mixture of .5% marcaine and 2% lidocaine plain Post-Operative Diagnosis: same Operation Performed: wound debridement of the left heel with misonix Specimen/Specimens Removed: deep tissue wound cultures Estimated Blood Loss: EBL {In ML}: 5 Blood Products Given: N/A Drains Used: No Drains Post-Op Condition: Good Date of Surgery/Procedure: 11/07/18 Time of Surgery/Procedure: 09:55
[2018-11-07] MEDS ORDERED: Sodium Chloride 0.9% 1,000 ML IV SCH ×2 (10:00→11:00)
[2018-11-07] MEDS ORDERED: Oxycodone/Acetaminophen 5/325 mg Tab PO PRN ×2 (10:01)
--- NOTE | 2018-11-07 13:02 | CP.PCM.PN ---
Subjective - Date & Time of Evaluation Date of Evaluation: 11/07/18 Time of Evaluation: 08:00 - Subjective Subjective: s/p debridement of necrotic wound c/o pain but NAD wound c/s - grp B strep MRI neg for OM Objective - Vital Signs/Intake and Output Vital Signs (last 24 hours): Temp Pulse Resp BP Pulse Ox 97.7 F 75 18 157/83 H 95 11/07/18 11:15 11/07/18 11:15 11/07/18 11:15 11/07/18 11:15 11/07/18 11:15 Intake and Output: 11/07/18 11/07/18 06:59 18:59 Intake Total 350 Balance 350 - Medications Medications: Current Medications Acetaminophen (Tylenol 325mg Tab) 650 mg PO Q6 PRN PRN Reason: Pain, Mild (1-3) Last Admin: 11/07/18 11:31 Dose: 650 mg Acetaminophen (Tylenol 325mg Tab) 650 mg PO Q6 PRN PRN Reason: Pain, Mild (1-3) Dorzolamide HCl (Trusopt) 1 drop OD Q12 [facility] Last Admin: 11/07/18 11:33 Dose: 1 drop Piperacillin Sod/Tazobactam (Sod 3.375 gm/ Sodium Chloride) 100 mls @ 100 mls/hr IVPB Q6H [facility]; Protocol Last Admin: 11/07/18 11:34 Dose: 100 mls/hr Vancomycin HCl 1 gm/ Sodium (Chloride) 250 mls @ 166.667 mls/hr IVPB Q12H [facility]; Protocol Last Admin: 11/07/18 11:46 Dose: 166.667 mls/hr Sodium Chloride (Sodium Chloride 0.9%) 1,000 mls @ 75 mls/hr IV .[id number] [facility] Stop: 11/08/18 10:51 Last Admin: 11/07/18 11:32 Dose: 75 mls/hr Insulin Detemir (Levemir) 30 units SC DAILY [facility] Last Admin: 11/07/18 11:28 Dose: 30 units Insulin Human Regular (Humulin R) 0 units SC ACHS [facility]; Protocol Last Admin: 11/07/18 11:33 Dose: Not Given Latanoprost (Xalatan Opht) 1 drop OU HS [facility] Last Admin: 11/06/18 22:12 Dose: 1 drop Losartan Potassium (Cozaar) 25 mg PO DAILY [facility] Last Admin: 11/07/18 11:30 Dose: 25 mg Metformin HCl (Glucophage) 1,000 mg PO BIDWM [facility] Last Admin: 11/07/18 11:29 Dose: 1,000 mg Oxycodone/Acetaminophen (Percocet 5/325 Mg Tab) 1 tab PO Q4 PRN PRN Reason: Pain, moderate (4-7) Stop: 11/10/18 10:02 Oxycodone/Acetaminophen (Percocet 5/325 Mg Tab) 2 tab PO Q4 PRN PRN Reason: Pain, severe (8-10) Stop: 11/10/18 10:02 Silver Sulfadiazine (Silvadene 1% 50 Gm) 1 applic TOP DAILY [facility] Last Admin: 11/07/18 08:20 Dose: Not Given Sitagliptin Phosphate (Januvia) 50 mg PO BID [facility] Last Admin: 11/07/18 11:29 Dose: 50 mg - Labs Labs: 11/06/18 06:10 11/06/18 06:10 PT 12.0 Seconds (9.8-13.1) 11/06/18 11:10 INR 1.1 11/06/18 11:10 - Constitutional Appears: Non-toxic, No Acute Distress, Chronically Ill - Head Exam Head Exam: ATRAUMATIC, NORMAL INSPECTION, NORMOCEPHALIC - Eye Exam Eye Exam: EOMI, Normal appearance, PERRL Pupil Exam: NORMAL ACCOMODATION, PERRL - ENT Exam ENT Exam: Mucous Membranes Moist, Normal Exam - Neck Exam Neck Exam: Full ROM, Normal Inspection. absent: Lymphadenopathy - Respiratory Exam Respiratory Exam: Clear to Ausculation Bilateral, NORMAL BREATHING PATTERN - Cardiovascular Exam Cardiovascular Exam: REGULAR RHYTHM, +S1, +S2. absent: Murmur - GI/Abdominal Exam GI & Abdominal Exam: Soft, Normal Bowel Sounds. absent: Tenderness - Rectal Exam Rectal Exam: Deferred - Exam Exam: NORMAL INSPECTION - Extremities Exam Extremities Exam: Full ROM, Normal Capillary Refill, Normal Inspection. absent: Joint Swelling, Pedal Edema - Back Exam Back Exam: NORMAL INSPECTION - Neurological Exam Neurological Exam: Alert, Awake, CN II-XII Intact, Normal Gait, Oriented x3 - Psychiatric Exam Psychiatric exam: Normal Affect, Normal Mood - Skin Skin Exam: Dry, Intact, Normal Color Additional comments: wound dressing in tact Assessment and Plan (1) Diabetes Status: Acute (2) Diabetic infection of left foot Status: Acute (3) HTN (hypertension) Status: Acute (4) Hyperglycemia Status: Acute - Assessment and Plan (Free Text) Assessment: s/p debridement of necrotic wound left calcaneus wound c/s - grp B strep MRI neg for OM cont IV antibiotics for now - may need 3 weeks rx - consider [facility] referral to allow for wound care and cont IV rx
--- NOTE | 2018-11-07 14:07 | CP.PCM.PN ---
Subjective - Date & Time of Evaluation Date of Evaluation: 11/07/18 Time of Evaluation: 11:00 - Subjective Subjective: patient in OR during rounds emr reviewed discussed with house staff monitor vitals monitor labs rest of plan as ordered Objective - Vital Signs/Intake and Output Vital Signs (last 24 hours): Temp Pulse Resp BP Pulse Ox 97.5 F L 79 18 154/76 H 95 11/07/18 13:15 11/07/18 13:15 11/07/18 13:15 11/07/18 13:15 11/07/18 13:15 Intake and Output: 11/07/18 11/07/18 06:59 18:59 Intake Total 350 Balance 350 - Medications Medications: Current Medications Acetaminophen (Tylenol 325mg Tab) 650 mg PO Q6 PRN PRN Reason: Pain, Mild (1-3) Last Admin: 11/07/18 11:31 Dose: 650 mg Acetaminophen (Tylenol 325mg Tab) 650 mg PO Q6 PRN PRN Reason: Pain, Mild (1-3) Dorzolamide HCl (Trusopt) 1 drop OD Q12 [facility] Last Admin: 11/07/18 11:33 Dose: 1 drop Piperacillin Sod/Tazobactam (Sod 3.375 gm/ Sodium Chloride) 100 mls @ 100 mls/hr IVPB Q6H [facility]; Protocol Last Admin: 11/07/18 11:34 Dose: 100 mls/hr Vancomycin HCl 1 gm/ Sodium (Chloride) 250 mls @ 166.667 mls/hr IVPB Q12H [facility]; Protocol Last Admin: 11/07/18 11:46 Dose: 166.667 mls/hr Sodium Chloride (Sodium Chloride 0.9%) 1,000 mls @ 75 mls/hr IV .[id number] [facility] Stop: 11/08/18 10:51 Last Admin: 11/07/18 11:32 Dose: 75 mls/hr Insulin Detemir (Levemir) 30 units SC DAILY [facility] Last Admin: 11/07/18 11:28 Dose: 30 units Insulin Human Regular (Humulin R) 0 units SC ACHS [facility]; Protocol Last Admin: 11/07/18 11:33 Dose: Not Given Latanoprost (Xalatan Opht) 1 drop OU HS [facility] Last Admin: 11/06/18 22:12 Dose: 1 drop Losartan Potassium (Cozaar) 25 mg PO DAILY [facility] Last Admin: 11/07/18 11:30 Dose: 25 mg Metformin HCl (Glucophage) 1,000 mg PO BIDWM [facility] Last Admin: 11/07/18 11:29 Dose: 1,000 mg Oxycodone/Acetaminophen (Percocet 5/325 Mg Tab) 1 tab PO Q4 PRN PRN Reason: Pain, moderate (4-7) Stop: 11/10/18 10:02 Oxycodone/Acetaminophen (Percocet 5/325 Mg Tab) 2 tab PO Q4 PRN PRN Reason: Pain, severe (8-10) Stop: 11/10/18 10:02 Silver Sulfadiazine (Silvadene 1% 50 Gm) 1 applic TOP DAILY [facility] Last Admin: 11/07/18 08:20 Dose: Not Given Sitagliptin Phosphate (Januvia) 50 mg PO BID [facility] Last Admin: 11/07/18 11:29 Dose: 50 mg - Labs Labs: 11/06/18 06:10 11/06/18 06:10 PT 12.0 Seconds (9.8-13.1) 11/06/18 11:10 INR 1.1 11/06/18 11:10 Assessment and Plan (1) Diabetic infection of left foot Status: Acute (2) Diabetes Status: Acute (3) HTN (hypertension) Status: Acute
[2018-11-07] MEDS: Latanoprost 0.005% Opht SOUTION OU SCH (21:40)
[2018-11-08] MEDS: Piperacillin/Tazobact 3.375 GM in Sodium Chloride 0.9% 100 ML IVPB SCH ×4 (04:09→21:59)
[2018-11-08] MEDS: Insulin Regular 100 units/ml SC SCH ×4 (06:42→21:38)
[2018-11-08 07:27] LABS: HEMOGLOBIN 11.2 g/dL (12.0-18.0); MEAN CORPUSCULAR HEMOGLOBIN 29.8 pg (27.0-31.0); MEAN CORPUSCULAR HGB CONC 34.3 g/dL (33.0-37.0); RBC 3.76 Mil/uL (4.40-5.90); RED CELL DISTRIBUTION WIDTH 14.6 % (11.5-14.5)
[2018-11-08 08:10] LABS: ALB/GLOB RATIO 1.1 (1.0-2.1); ALBUMIN 3.3 g/dL (3.5-5.0); ALT/SGPT 17 U/L (21-72); AST/SGOT 17 U/L (17-59); BLOOD UREA NITROGEN 22 mg/dl (9-20); CALCIUM 8.9 mg/dL (8.4-10.2); GFR NON-AFRICAN AMERICAN 54
[2018-11-08] MEDS: Enoxaparin 40 mg Syringe SC SCH (08:36)
[2018-11-08] MEDS: Insulin Detemir 100 Units/ml Inj SC SCH (08:38)
[2018-11-08] MEDS: Dorzolamide 2% Ophth Soln OD SCH ×2 (08:38→21:53)
[2018-11-08] MEDS: Silver Sulfadiazine 1% CREAM (50 gm) TOP SCH (09:00)
--- NOTE | 2018-11-08 11:56 | CP.PCM.PN ---
Subjective - Date & Time of Evaluation Date of Evaluation: 11/08/18 Time of Evaluation: 11:55 - Subjective Subjective: patient seen and examined at bedside. Interim events noted no complaints, pain well controlled denies cp/sob/fever/chills. available diagnostic data reviewed Review of Systems All systems: reviewed and no additional remarkable complaints except mentioned above Objective Vital Signs Stable - Constitutional Appears: Non-toxic, No Acute Distress Head Exam: NORMAL INSPECTION Eye Exam: Normal appearance Respiratory Exam: NORMAL BREATHING PATTERN Cardiovascular Exam: +S1, +S2 GI & Abdominal Exam: Soft Neurological Exam: Alert, Awake Psychiatric exam: Normal Affect, Normal Mood Skin Exam: Normal Color, Warm, dressings in place Assessment and Plan monitor vitals monitor labs Cont meds Cont tx consultants appreciated input may need elongated abx course rest of plan as ordered Objective - Vital Signs/Intake and Output Vital Signs (last 24 hours): Temp Pulse Resp BP Pulse Ox 97.9 F 88 18 144/78 96 11/08/18 08:37 11/08/18 08:37 11/08/18 08:37 11/08/18 08:37 11/08/18 08:37 - Medications Medications: Current Medications Acetaminophen (Tylenol 325mg Tab) 650 mg PO Q6 PRN PRN Reason: Pain, Mild (1-3) Last Admin: 11/07/18 11:31 Dose: 650 mg Acetaminophen (Tylenol 325mg Tab) 650 mg PO Q6 PRN PRN Reason: Pain, Mild (1-3) Dorzolamide HCl (Trusopt) 1 drop OD Q12 [facility] Last Admin: 11/08/18 08:38 Dose: 1 drop Enoxaparin Sodium (Lovenox) 40 mg SC DAILY [facility]; Protocol Last Admin: 11/08/18 08:36 Dose: 40 mg Piperacillin Sod/Tazobactam (Sod 3.375 gm/ Sodium Chloride) 100 mls @ 100 mls/hr IVPB Q6H [facility]; Protocol Last Admin: 11/08/18 10:36 Dose: 100 mls/hr Vancomycin HCl 1 gm/ Sodium (Chloride) 250 mls @ 166.667 mls/hr IVPB Q12H [facility]; Protocol Last Admin: 11/08/18 11:55 Dose: 166.667 mls/hr Insulin Detemir (Levemir) 30 units SC DAILY [facility] Last Admin: 11/08/18 08:38 Dose: 30 units Insulin Human Regular (Humulin R) 0 units SC ACHS [facility]; Protocol Last Admin: 11/08/18 06:42 Dose: Not Given Latanoprost (Xalatan Opht) 1 drop OU HS [facility] Last Admin: 11/07/18 21:40 Dose: 1 drop Losartan Potassium (Cozaar) 25 mg PO DAILY [facility] Last Admin: 11/08/18 08:36 Dose: 25 mg Metformin HCl (Glucophage) 1,000 mg PO BIDWM [facility] Last Admin: 11/08/18 08:37 Dose: 1,000 mg Oxycodone/Acetaminophen (Percocet 5/325 Mg Tab) 1 tab PO Q4 PRN PRN Reason: Pain, moderate (4-7) Stop: 11/10/18 10:02 Last Admin: 11/08/18 08:34 Dose: 1 tab Oxycodone/Acetaminophen (Percocet 5/325 Mg Tab) 2 tab PO Q4 PRN PRN Reason: Pain, severe (8-10) Stop: 11/10/18 10:02 Silver Sulfadiazine (Silvadene 1% 50 Gm) 1 applic TOP DAILY [facility] Last Admin: 11/07/18 08:20 Dose: Not Given Sitagliptin Phosphate (Januvia) 50 mg PO BID [facility] Last Admin: 11/08/18 08:36 Dose: 50 mg - Labs Labs: 11/08/18 05:30 11/08/18 05:30 PT 12.0 Seconds (9.8-13.1) 11/06/18 11:10 INR 1.1 11/06/18 11:10 Assessment and Plan (1) Diabetic infection of left foot Status: Acute (2) Diabetes Status: Acute (3) HTN (hypertension) Status: Acute
--- NOTE | 2018-11-08 13:29 | CP.PCM.PN ---
Subjective - Date & Time of Evaluation Date of Evaluation: 11/08/18 Time of Evaluation: 09:00 - Subjective Subjective: patient is s/p debridement of deep tissue injury to left heel MRI was neg for OM cultures growing Grp B strep- OR cultures pending c/o pain but NAD Objective - Vital Signs/Intake and Output Vital Signs (last 24 hours): Temp Pulse Resp BP Pulse Ox 97.9 F 88 18 144/78 96 11/08/18 08:37 11/08/18 08:37 11/08/18 08:37 11/08/18 08:37 11/08/18 08:37 - Medications Medications: Current Medications Acetaminophen (Tylenol 325mg Tab) 650 mg PO Q6 PRN PRN Reason: Pain, Mild (1-3) Last Admin: 11/08/18 12:24 Dose: 650 mg Acetaminophen (Tylenol 325mg Tab) 650 mg PO Q6 PRN PRN Reason: Pain, Mild (1-3) Dorzolamide HCl (Trusopt) 1 drop OD Q12 [facility] Last Admin: 11/08/18 08:38 Dose: 1 drop Enoxaparin Sodium (Lovenox) 40 mg SC DAILY [facility]; Protocol Last Admin: 11/08/18 08:36 Dose: 40 mg Piperacillin Sod/Tazobactam (Sod 3.375 gm/ Sodium Chloride) 100 mls @ 100 mls/hr IVPB Q6H [facility]; Protocol Last Admin: 11/08/18 10:36 Dose: 100 mls/hr Vancomycin HCl 1 gm/ Sodium (Chloride) 250 mls @ 166.667 mls/hr IVPB Q12H [facility]; Protocol Last Admin: 11/08/18 11:55 Dose: 166.667 mls/hr Insulin Detemir (Levemir) 30 units SC DAILY [facility] Last Admin: 11/08/18 08:38 Dose: 30 units Insulin Human Regular (Humulin R) 0 units SC ACHS [facility]; Protocol Last Admin: 11/08/18 11:58 Dose: 2 units Latanoprost (Xalatan Opht) 1 drop OU HS [facility] Last Admin: 11/07/18 21:40 Dose: 1 drop Losartan Potassium (Cozaar) 25 mg PO DAILY [facility] Last Admin: 11/08/18 08:36 Dose: 25 mg Metformin HCl (Glucophage) 1,000 mg PO BIDWM [facility] Last Admin: 11/08/18 08:37 Dose: 1,000 mg Oxycodone/Acetaminophen (Percocet 5/325 Mg Tab) 1 tab PO Q4 PRN PRN Reason: Pain, moderate (4-7) Stop: 11/10/18 10:02 Last Admin: 11/08/18 08:34 Dose: 1 tab Oxycodone/Acetaminophen (Percocet 5/325 Mg Tab) 2 tab PO Q4 PRN PRN Reason: Pain, severe (8-10) Stop: 11/10/18 10:02 Silver Sulfadiazine (Silvadene 1% 50 Gm) 1 applic TOP DAILY [facility] Last Admin: 11/08/18 09:00 Dose: 1 applic Sitagliptin Phosphate (Januvia) 50 mg PO BID [facility] Last Admin: 11/08/18 08:36 Dose: 50 mg - Labs Labs: 11/08/18 05:30 11/08/18 05:30 PT 12.0 Seconds (9.8-13.1) 11/06/18 11:10 INR 1.1 11/06/18 11:10 - Constitutional Appears: Well, Non-toxic, No Acute Distress, Chronically Ill - Head Exam Head Exam: ATRAUMATIC, NORMAL INSPECTION, NORMOCEPHALIC - Eye Exam Eye Exam: EOMI, Normal appearance, PERRL Pupil Exam: NORMAL ACCOMODATION, PERRL - ENT Exam ENT Exam: Mucous Membranes Moist, Normal Exam - Neck Exam Neck Exam: Full ROM, Normal Inspection. absent: Lymphadenopathy - Respiratory Exam Respiratory Exam: Clear to Ausculation Bilateral, NORMAL BREATHING PATTERN - Cardiovascular Exam Cardiovascular Exam: REGULAR RHYTHM, +S1, +S2. absent: Murmur - GI/Abdominal Exam GI & Abdominal Exam: Soft, Normal Bowel Sounds. absent: Tenderness - Rectal Exam Rectal Exam: Deferred - Exam Speculum exam: NORMAL SPECULUM EXAM - Extremities Exam Extremities Exam: absent: Joint Swelling, Pedal Edema - Back Exam Back Exam: NORMAL INSPECTION - Neurological Exam Neurological Exam: Alert, Awake, CN II-XII Intact, Normal Gait, Oriented x3 - Psychiatric Exam Psychiatric exam: Normal Affect, Normal Mood - Skin Skin Exam: Dry, Intact, Normal Color Additional comments: wound dressing in place left foot toes warm no malodor DP pulse palpable Assessment and Plan (1) Diabetes Status: Acute (2) Diabetic infection of left foot Status: Acute (3) HTN (hypertension) Status: Acute (4) Hyperglycemia Status: Acute - Assessment and Plan (Free Text) Assessment: patient is s/p debridement of deep tissue injury to left heel MRI was neg for OM cultures growing Grp B strep- OR cultures pending c/o pain but NAD Plan: cont IV antibiotics for now may benefit from [facility] for wound care and IV rx for 14-21 days may switch to Unasyn monothrapy if OR cultures show same organism
--- NOTE | 2018-11-08 14:22 | CP.PCM.PN ---
Subjective - Date & Time of Evaluation Date of Evaluation: 11/08/18 Time of Evaluation: 14:21 - Subjective Subjective: Podiatry progress note for Dr. Fernandez, 73 y/o male patient with PMHx of HTN, Hypercholesterolemia, Pancreatitis, Chronic Kidney Disease 1 day status post left heel wound debridement with Dr. Fernandez. Patient denies acute overnight events. Patient complains of some pain to the area, but denies nausea/vomiting, chest pain, shortness of breath, palpitations. Patient complaining of some discomfort to his stomach along with burning pain. Patient's nurse is aware and will contact the primary team Objective - Vital Signs/Intake and Output Vital Signs (last 24 hours): Temp Pulse Resp BP Pulse Ox 98.1 F 81 17 129/76 96 11/08/18 13:00 11/08/18 13:00 11/08/18 13:00 11/08/18 13:00 11/08/18 08:37 - Medications Medications: Current Medications Acetaminophen (Tylenol 325mg Tab) 650 mg PO Q6 PRN PRN Reason: Pain, Mild (1-3) Last Admin: 11/08/18 12:24 Dose: 650 mg Acetaminophen (Tylenol 325mg Tab) 650 mg PO Q6 PRN PRN Reason: Pain, Mild (1-3) Dorzolamide HCl (Trusopt) 1 drop OD Q12 [facility] Last Admin: 11/08/18 08:38 Dose: 1 drop Enoxaparin Sodium (Lovenox) 40 mg SC DAILY [facility]; Protocol Last Admin: 11/08/18 08:36 Dose: 40 mg Piperacillin Sod/Tazobactam (Sod 3.375 gm/ Sodium Chloride) 100 mls @ 100 mls/hr IVPB Q6H [facility]; Protocol Last Admin: 11/08/18 10:36 Dose: 100 mls/hr Insulin Detemir (Levemir) 30 units SC DAILY [facility] Last Admin: 11/08/18 08:38 Dose: 30 units Insulin Human Regular (Humulin R) 0 units SC ACHS [facility]; Protocol Last Admin: 11/08/18 11:58 Dose: 2 units Latanoprost (Xalatan Opht) 1 drop OU HS [facility] Last Admin: 11/07/18 21:40 Dose: 1 drop Losartan Potassium (Cozaar) 25 mg PO DAILY [facility] Last Admin: 11/08/18 08:36 Dose: 25 mg Metformin HCl (Glucophage) 1,000 mg PO BIDWM [facility] Last Admin: 11/08/18 08:37 Dose: 1,000 mg Oxycodone/Acetaminophen (Percocet 5/325 Mg Tab) 1 tab PO Q4 PRN PRN Reason: Pain, moderate (4-7) Stop: 11/10/18 10:02 Last Admin: 11/08/18 08:34 Dose: 1 tab Oxycodone/Acetaminophen (Percocet 5/325 Mg Tab) 2 tab PO Q4 PRN PRN Reason: Pain, severe (8-10) Stop: 11/10/18 10:02 Silver Sulfadiazine (Silvadene 1% 50 Gm) 1 applic TOP DAILY [facility] Last Admin: 11/08/18 09:00 Dose: 1 applic Sitagliptin Phosphate (Januvia) 50 mg PO BID [facility] Last Admin: 11/08/18 08:36 Dose: 50 mg - Labs Labs: 11/08/18 05:30 11/08/18 05:30 PT 12.0 Seconds (9.8-13.1) 11/06/18 11:10 INR 1.1 11/06/18 11:10 - Constitutional Appears: Well, Non-toxic, No Acute Distress - Head Exam Head Exam: ATRAUMATIC, NORMOCEPHALIC - Extremities Exam Additional comments: B/L Lower Extremity Exam: VASC: DP and PT 1/4 bilaterally likely secondary to edema, Cap refill < 3 seconds to all digits, moderate +2 pitting edema noted to the left lower extremity, positive jovanna wound erythema noted. Temperature gradient warm to warm from proximal to distal on the left NEURO: Protective sensation diminished bilaterally DERM: deep tissue injury ulceration noted to the left heel measuring approximately 4.3 cm X 3 cm X 0.1 cm ulcer with mixed fibro-granular based and erythematous wound edges, no malodor, no purulent drainage, no probe to bone, no other lesions or signs of infection noted to bilateral lower extremities MSK: Muscle power 4/5 to all groups b/l, no gross deformities appreciated - Neurological Exam Neurological Exam: Alert, Awake, Oriented x3 - Psychiatric Exam Psychiatric exam: Normal Affect, Normal Mood Assessment and Plan - Assessment and Plan (Free Text) Assessment: 73 y/o male patient with PMHx of HTN, Hypercholesterolemia, Pancreatitis, Chronic Kidney Disease 1 day status post left heel wound debridement with Dr. Fernandez. Plan: Patient seen and evaluated Plan discussed with Dr. Fernandez Chart, labs and vitals reviewed- elevated blood pressure and blood sugar upon arrival to ED, afebrile, absent leukocytosis WBC 7.3 ESR 62 (11/04/18) Ordered Left foot X-ray: no overt osteo noted Lower Extremity US: no deep venous thrombosis seen Duplex Bilaterally: normal duplex Obtained wound culture and gram stain- beta hemolytic step group B Left foot MRI w/o contrast: no OM of calcaneus Continue IV Abx Continue management per primary team Left heel dressed with SSD DSD, patient to be in multipodus boots at all times. Patient awaiting heel off-loading shoe from physical therapy. Shoe has been o rdered as per physical therapy and will arrive on Saturday Will continue to follow while patient is in-house
[2018-11-08] MEDS: Alum-Mag Hydrox-Simethicone Susp (30 mL) PO PRN (14:47)
[2018-11-08] MEDS: Latanoprost 0.005% Opht SOUTION OU SCH (21:54)
[2018-11-09] MEDS: Piperacillin/Tazobact 3.375 GM in Sodium Chloride 0.9% 100 ML IVPB SCH ×4 (05:10→22:01)
[2018-11-09] MEDS: Insulin Regular 100 units/ml SC SCH ×4 (08:24→23:00)
[2018-11-09] MEDS: Enoxaparin 40 mg Syringe SC SCH (08:25)
[2018-11-09] MEDS: Dorzolamide 2% Ophth Soln OD SCH ×2 (08:25→22:00)
[2018-11-09] MEDS: Insulin Detemir 100 Units/ml Inj SC SCH (08:28)
[2018-11-09] MEDS: Silver Sulfadiazine 1% CREAM (50 gm) TOP SCH (10:16)
[2018-11-09] MEDS ORDERED: Dextrose 50% SYRINGE Inj (50 ml) IV PRN (11:57)
[2018-11-09] MEDS ORDERED: Glucagon Recombinant 1 mg Inj IM PRN (11:57)
[2018-11-09] MEDS ORDERED: Simethicone 80 mg Chewtab PO PRN (11:59)
--- NOTE | 2018-11-09 12:41 | CP.PCM.PN ---
Subjective - Date & Time of Evaluation Date of Evaluation: 11/09/18 Time of Evaluation: 12:40 - Subjective Subjective: Podiatry progress note for Dr. Fernandez, 73 y/o male patient with PMHx of HTN, Hypercholesterolemia, Pancreatitis, Chronic Kidney Disease 2 days status post left heel wound debridement with Dr. Fernandez. Patient denies acute overnight events. Patient complains of some pain to the area, but denies nausea/vomiting, chest pain, shortness of breath, palpitations. Objective - Vital Signs/Intake and Output Vital Signs (last 24 hours): Temp Pulse Resp BP Pulse Ox 97.7 F 83 18 177/84 H 97 11/09/18 08:09 11/09/18 08:26 11/09/18 08:09 11/09/18 08:26 11/09/18 08:09 - Medications Medications: Current Medications Acetaminophen (Tylenol 325mg Tab) 650 mg PO Q6 PRN PRN Reason: Pain, Mild (1-3) Last Admin: 11/08/18 12:24 Dose: 650 mg Acetaminophen (Tylenol 325mg Tab) 650 mg PO Q6 PRN PRN Reason: Pain, Mild (1-3) Al Hydrox/Mg Hydrox/Simethicone (Maalox Plus 30 Ml) 30 ml PO Q6 PRN PRN Reason: Indigestion / Heartburn Last Admin: 11/08/18 14:47 Dose: 30 ml Dextrose (Dextrose 50% Inj) 0 ml IV STAT PRN; Protocol PRN Reason: Hypoglycemia Protocol Dextrose (Glutose 15) 0 gm PO ONCE PRN; Protocol PRN Reason: Hypoglycemia Protocol Dorzolamide HCl (Trusopt) 1 drop OD Q12 [facility] Last Admin: 11/09/18 08:25 Dose: 1 drop Enoxaparin Sodium (Lovenox) 40 mg SC DAILY [facility]; Protocol Last Admin: 11/09/18 08:25 Dose: 40 mg Glucagon (Glucagen Diagnostic Kit) 0 mg IM STAT PRN; Protocol PRN Reason: Hypoglycemia Protocol Piperacillin Sod/Tazobactam (Sod 3.375 gm/ Sodium Chloride) 100 mls @ 100 mls/ hr IVPB Q6H [facility]; Protocol Last Admin: 11/09/18 10:15 Dose: 100 mls/hr Insulin Detemir (Levemir) 30 units SC HS [facility] Insulin Human Regular (Humulin R) 0 units SC ACHS [facility]; Protocol Last Admin: 11/09/18 08:24 Dose: Not Given Latanoprost (Xalatan Opht) 1 drop OU HS [facility] Last Admin: 11/08/18 21:54 Dose: 1 drop Losartan Potassium (Cozaar) 50 mg PO DAILY [facility] Metformin HCl (Glucophage) 1,000 mg PO BIDWM [facility] Last Admin: 11/09/18 08:24 Dose: 1,000 mg Oxycodone/Acetaminophen (Percocet 5/325 Mg Tab) 1 tab PO Q4 PRN PRN Reason: Pain, moderate (4-7) Stop: 11/10/18 10:02 Last Admin: 11/08/18 08:34 Dose: 1 tab Oxycodone/Acetaminophen (Percocet 5/325 Mg Tab) 2 tab PO Q4 PRN PRN Reason: Pain, severe (8-10) Stop: 11/10/18 10:02 Last Admin: 11/08/18 18:48 Dose: 2 tab Pantoprazole Sodium (Protonix Ec Tab) 40 mg PO DAILY [facility] Silver Sulfadiazine (Silvadene 1% 50 Gm) 1 applic TOP DAILY [facility] Last Admin: 11/09/18 10:16 Dose: 1 applic Simethicone (Mylicon Chew Tab) 80 mg PO HS PRN PRN Reason: Flatulence Sitagliptin Phosphate (Januvia) 50 mg PO BID [facility] Last Admin: 11/09/18 08:24 Dose: 50 mg - Labs Labs: 11/08/18 05:30 11/08/18 05:30 PT 12.0 Seconds (9.8-13.1) 11/06/18 11:10 INR 1.1 11/06/18 11:10 - Constitutional Appears: Well, Non-toxic, No Acute Distress - Head Exam Head Exam: ATRAUMATIC, NORMOCEPHALIC - Extremities Exam Additional comments: B/L Lower Extremity Exam: VASC: DP and PT 1/4 bilaterally likely secondary to edema, Cap refill < 3 seconds to all digits, moderate +2 pitting edema noted to the left lower extre mity, positive jovanna wound erythema noted. Temperature gradient warm to warm from proximal to distal on the left NEURO: Protective sensation diminished bilaterally DERM: deep tissue injury ulceration noted to the left heel measuring approximately 4.3 cm X 3 cm X 0.1 cm ulcer with mixed fibro-granular based and erythematous wound edges, no malodor, no purulent drainage, no probe to bone, no other lesions or signs of infection noted to bilateral lower extremities MSK: Muscle power 4/5 to all groups b/l, no gross deformities appreciated - Neurological Exam Neurological Exam: Alert, Awake, Oriented x3 - Psychiatric Exam Psychiatric exam: Normal Affect, Normal Mood Assessment and Plan - Assessment and Plan (Free Text) Assessment: 73 y/o male patient with PMHx of HTN, Hypercholesterolemia, Pancreatitis, Chronic Kidney Disease 2 days status post left heel wound debridement with Dr. Fernandez. Plan: Patient seen and evaluated Plan discussed with Dr. Fernandez Chart, labs and vitals reviewed- elevated blood pressure and blood sugar upon arrival to ED, afebrile, absent leukocytosis WBC 7.3 ESR 62 (11/04/18) Ordered Left foot X-ray: no overt osteo noted Lower Extremity US: no deep venous thrombosis seen Duplex Bilaterally: normal duplex Obtained wound culture and gram stain- beta hemolytic step group B OR Wound Cultures: Gram Positive Cocci Left foot MRI w/o contrast: no OM of calcaneus Continue IV Abx Continue management per primary team Left heel dressed with SSD DSD, patient to be in multipodus boots at all times with the heel offloaded Patient awaiting heel off-loading shoe from physical therapy. Shoe has been ordered as per physical therapy and will arrive on Saturday Will continue to follow while patient is in-house
[2018-11-09] MEDS: Pantoprazole 40 mg EC Tab PO SCH (13:24)
[2018-11-09] MEDS: Alum-Mag Hydrox-Simethicone Susp (30 mL) PO PRN (16:30)
[2018-11-09] MEDS: Latanoprost 0.005% Opht SOUTION OU SCH (22:00)
[2018-11-10] MEDS: Piperacillin/Tazobact 3.375 GM in Sodium Chloride 0.9% 100 ML IVPB SCH ×4 (04:08→21:03)
--- NOTE | 2018-11-10 07:27 | CP.PCM.PN ---
Subjective - Date & Time of Evaluation Date of Evaluation: 11/10/18 Time of Evaluation: 07:23 - Subjective Subjective: Podiatry progress note for Dr. Fernandez, 73 y/o male patient with PMHx of HTN, Hypercholesterolemia, Pancreatitis, Chronic Kidney Disease 3 days status post left heel wound debridement with Dr. Fernandez. Patient denies acute overnight events. Patient complains of minimal pain to the area, but denies nausea/vomiting, chest pain, shortness of breath, palpitations. Objective - Vital Signs/Intake and Output Vital Signs (last 24 hours): Temp Pulse Resp BP Pulse Ox 98.4 F 91 H 20 151/74 H 98 11/09/18 23:39 11/09/18 23:39 11/09/18 23:39 11/09/18 23:39 11/09/18 23:39 - Medications Medications: Current Medications Acetaminophen (Tylenol 325mg Tab) 650 mg PO Q6 PRN PRN Reason: Pain, Mild (1-3) Last Admin: 11/08/18 12:24 Dose: 650 mg Acetaminophen (Tylenol 325mg Tab) 650 mg PO Q6 PRN PRN Reason: Pain, Mild (1-3) Al Hydrox/Mg Hydrox/Simethicone (Maalox Plus 30 Ml) 30 ml PO Q6 PRN PRN Reason: Indigestion / Heartburn Last Admin: 11/09/18 16:30 Dose: 30 ml Dextrose (Dextrose 50% Inj) 0 ml IV STAT PRN; Protocol PRN Reason: Hypoglycemia Protocol Dextrose (Glutose 15) 0 gm PO ONCE PRN; Protocol PRN Reason: Hypoglycemia Protocol Dorzolamide HCl (Trusopt) 1 drop OD Q12 [facility] Last Admin: 11/09/18 22:00 Dose: 1 drop Enoxaparin Sodium (Lovenox) 40 mg SC DAILY [facility]; Protocol Last Admin: 11/09/18 08:25 Dose: 40 mg Glucagon (Glucagen Diagnostic Kit) 0 mg IM STAT PRN; Protocol PRN Reason: Hypoglycemia Protocol Piperacillin Sod/Tazobactam (Sod 3.375 gm/ Sodium Chloride) 100 mls @ 100 m ls/hr IVPB Q6H [facility]; Protocol Last Admin: 11/10/18 04:08 Dose: 100 mls/hr Insulin Detemir (Levemir) 30 units SC HS [facility] Insulin Human Regular (Humulin R) 0 units SC ACHS [facility]; Protocol Last Admin: 11/09/18 23:00 Dose: Not Given Latanoprost (Xalatan Opht) 1 drop OU HS [facility] Last Admin: 11/09/18 22:00 Dose: 1 drop Losartan Potassium (Cozaar) 50 mg PO DAILY [facility] Metformin HCl (Glucophage) 1,000 mg PO BIDWM [facility] Last Admin: 11/09/18 16:25 Dose: 1,000 mg Oxycodone/Acetaminophen (Percocet 5/325 Mg Tab) 1 tab PO Q4 PRN PRN Reason: Pain, moderate (4-7) Stop: 11/10/18 10:02 Last Admin: 11/08/18 08:34 Dose: 1 tab Oxycodone/Acetaminophen (Percocet 5/325 Mg Tab) 2 tab PO Q4 PRN PRN Reason: Pain, severe (8-10) Stop: 11/10/18 10:02 Last Admin: 11/08/18 18:48 Dose: 2 tab Pantoprazole Sodium (Protonix Ec Tab) 40 mg PO DAILY [facility] Last Admin: 11/09/18 13:24 Dose: 40 mg Silver Sulfadiazine (Silvadene 1% 50 Gm) 1 applic TOP DAILY [facility] Last Admin: 11/09/18 10:16 Dose: 1 applic Simethicone (Mylicon Chew Tab) 80 mg PO HS PRN PRN Reason: Flatulence Sitagliptin Phosphate (Januvia) 50 mg PO BID [facility] Last Admin: 11/09/18 16:25 Dose: 50 mg - Labs Labs: 11/08/18 05:30 11/08/18 05:30 PT 12.0 Seconds (9.8-13.1) 11/06/18 11:10 INR 1.1 11/06/18 11:10 - Constitutional Appears: Well, Non-toxic - Head Exam Head Exam: ATRAUMATIC, NORMOCEPHALIC - Eye Exam Eye Exam: Normal appearance - ENT Exam ENT Exam: Mucous Membranes Moist - Cardiovascular Exam Cardiovascular Exam: REGULAR RHYTHM - Extremities Exam Additional comments: B/L Lower Extremity Exam: VASC: DP and PT 1/4 bilaterally likely secondary to edema, Cap refill < 3 seconds to all digits, moderate +2 pitting edema noted to the left lower extremity, positive jovanna wound erythema noted. Temperature gradient warm to warm from proximal to distal on the left NEURO: Protective sensation diminished bilaterally DERM: ulceration noted to the left heel measuring approximately 4.3 cm X 3 cm X 0.1 cm ulcer with mixed fibro-granular based and erythematous wound edges, no malodor, no purulent drainage, no probe to bone, no other lesions or signs of infection noted to bilateral lower extremities MSK: Muscle power 4/5 to all groups b/l, no gross deformities appreciated - Neurological Exam Neurological Exam: Alert, Awake Assessment and Plan - Assessment and Plan (Free Text) Assessment: 73 y/o male patient with PMHx of HTN, Hypercholesterolemia, Pancreatitis, Chronic Kidney Disease 3 days status post left heel wound debridement with Dr. Fernandez. Plan: Patient seen and evaluated Plan discussed with Dr. Fernandez Chart, labs and vitals reviewed- elevated blood pressure and blood sugar upon arrival to ED, afebrile, absent leukocytosis WBC 7.3 ESR 62 (11/04/18) Ordered Left foot X-ray: no overt osteo noted Lower Extremity US: no deep venous thrombosis seen Duplex Bilaterally: normal duplex Obtained wound culture and gram stain- beta hemolytic step group B OR Wound Cultures: coagulase negative staphylococcus Left foot MRI w/o contrast: no OM of calcaneus Continue IV Abx per ID Continue management per primary team Left heel dressed with SSD DSD, patient to be in multipodus boots at all times with the heel offloaded Patient awaiting heel off-loading shoe from physical therapy. Shoe has been ordered as per physical therapy and will arrive on Saturday Patient stable for discharge, patient will follow up in podiatry clinic Will continue to follow while patient is in-house
[2018-11-10] MEDS: Enoxaparin 40 mg Syringe SC SCH (08:28)
[2018-11-10] MEDS: Dorzolamide 2% Ophth Soln OD SCH ×2 (08:29→21:04)
[2018-11-10] MEDS: Insulin Regular 100 units/ml SC SCH ×4 (08:29→21:43)
[2018-11-10] MEDS: Silver Sulfadiazine 1% CREAM (50 gm) TOP SCH (08:30)
[2018-11-10] MEDS: Pantoprazole 40 mg EC Tab PO SCH (08:34)
--- NOTE | 2018-11-10 11:16 | CP.PCM.PN ---
Subjective - Date & Time of Evaluation Date of Evaluation: 11/09/18 Time of Evaluation: 11:00 - Subjective Subjective: patient seen and examined at bedside. Interim events noted complains of GERD, pain well controlled denies cp/sob/fever/chills. available diagnostic data reviewed Review of Systems All systems: reviewed and no additional remarkable complaints except mentioned above Objective Vital Signs Stable - Constitutional Appears: Non-toxic, No Acute Distress Head Exam: NORMAL INSPECTION Eye Exam: Normal appearance Respiratory Exam: NORMAL BREATHING PATTERN Cardiovascular Exam: +S1, +S2 GI & Abdominal Exam: Soft Neurological Exam: Alert, Awake Psychiatric exam: Normal Affect, Normal Mood Skin Exam: Normal Color, Warm, dressings in place Assessment and Plan monitor vitals monitor labs Cont meds Cont tx consultants appreciated input may need elongated abx course PPI adjust bp/dm meds rest of plan as ordered Assessment and Plan (1) Diabetic infection of left foot Status: Acute (2) Diabetes Status: Acute (3) HTN (hypertension) Status: Acute
--- NOTE | 2018-11-10 11:33 | CP.PCM.PCO ---
Physician Communication Note - Physician Communication Note Physician Communication Note: Continue IV abx for 8-[address] Goldberg recommendation
--- NOTE | 2018-11-10 11:56 | CP.PCM.PN ---
Subjective - Date & Time of Evaluation Date of Evaluation: 11/10/18 Time of Evaluation: 09:00 - Subjective Subjective: improving on IV rx for TCU care Objective - Vital Signs/Intake and Output Vital Signs (last 24 hours): Temp Pulse Resp BP Pulse Ox 98.1 F 81 18 172/80 H 94 L 11/10/18 08:33 11/10/18 08:33 11/10/18 08:33 11/10/18 08:33 11/10/18 08:33 - Medications Medications: Current Medications Acetaminophen (Tylenol 325mg Tab) 650 mg PO Q6 PRN PRN Reason: Pain, Mild (1-3) Last Admin: 11/08/18 12:24 Dose: 650 mg Acetaminophen (Tylenol 325mg Tab) 650 mg PO Q6 PRN PRN Reason: Pain, Mild (1-3) Al Hydrox/Mg Hydrox/Simethicone (Maalox Plus 30 Ml) 30 ml PO Q6 PRN PRN Reason: Indigestion / Heartburn Last Admin: 11/09/18 16:30 Dose: 30 ml Dextrose (Dextrose 50% Inj) 0 ml IV STAT PRN; Protocol PRN Reason: Hypoglycemia Protocol Dextrose (Glutose 15) 0 gm PO ONCE PRN; Protocol PRN Reason: Hypoglycemia Protocol Dorzolamide HCl (Trusopt) 1 drop OD Q12 [facility] Last Admin: 11/10/18 08:29 Dose: 1 drop Enoxaparin Sodium (Lovenox) 40 mg SC DAILY [facility]; Protocol Last Admin: 11/10/18 08:28 Dose: 40 mg Glucagon (Glucagen Diagnostic Kit) 0 mg IM STAT PRN; Protocol PRN Reason: Hypoglycemia Protocol Piperacillin Sod/Tazobactam (Sod 3.375 gm/ Sodium Chloride) 100 mls @ 100 mls/hr IVPB Q6 [facility]; Protocol Last Admin: 11/10/18 11:32 Dose: 100 mls/hr Insulin Detemir (Levemir) 30 units SC HS [facility] Insulin Human Regular (Humulin R) 0 units SC ACHS [facility]; Protocol Last Admin: 11/10/18 11:31 Dose: 2 units Latanoprost (Xalatan Opht) 1 drop OU HS [facility] Last Admin: 11/09/18 22:00 Dose: 1 drop Losartan Potassium (Cozaar) 50 mg PO DAILY [facility] Last Admin: 11/10/18 08:29 Dose: 50 mg Metformin HCl (Glucophage) 1,000 mg PO BIDWM [facility] BEDS AT [facility] Last Admin: 11/10/18 08:29 Dose: 1,000 mg Pantoprazole Sodium (Protonix Ec Tab) 40 mg PO DAILY [facility] B[facility]S AT [facility] Last Admin: 11/10/18 08:34 Dose: 40 mg Silver Sulfadiazine (Silvadene 1% 50 Gm) 1 applic TOP DAILY [facility]S [facility] Last Admin: 11/10/18 08:30 Dose: 1 applic Simethicone (Mylicon Chew Tab) 80 mg PO [facility] PRN PRN Reason: Flatulence Sitagliptin Phosphate (Januvia) 50 mg PO BID [facility] BEDS AT [facility] Last Admin: 11/10/18 08:28 Dose: 50 mg - Labs Labs: 11/08/18 05:30 11/08/18 05:30 PT 12.0 Seconds (9.8-13.1) 11/06/18 11:10 INR 1.1 11/06/18 11:10 - Constitutional Appears: Non-toxic, No Acute Distress, Chronically Ill - Head Exam Head Exam: ATRAUMATIC, NORMAL INSPECTION, NORMOCEPHALIC - Eye Exam Eye Exam: EOMI, Normal appearance, PERRL Pupil Exam: NORMAL ACCOMODATION, PERRL - ENT Exam ENT Exam: Mucous Membranes Moist, Normal Exam - Neck Exam Neck Exam: Full ROM, Normal Inspection. absent: Lymphadenopathy - Respiratory Exam Respiratory Exam: Clear to Ausculation Bilateral, NORMAL BREATHING PATTERN - Cardiovascular Exam Cardiovascular Exam: REGULAR RHYTHM, +S1, +S2. absent: Murmur - GI/Abdominal Exam GI & Abdominal Exam: Soft, Normal Bowel Sounds. absent: Tenderness - Rectal Exam Rectal Exam: Deferred - Exam Exam: NORMAL INSPECTION - Extremities Exam Extremities Exam: Full ROM, Normal Capillary Refill, Pedal Edema. absent: Joint Swelling Additional comments: heel ulcer noted' dressing C/D /I - Back Exam Back Exam: NORMAL INSPECTION - Neurological Exam Neurological Exam: Alert, Awake, CN II-XII Intact, Normal Gait, Oriented x3 - Psychiatric Exam Psychiatric exam: Normal Affect, Normal Mood - Skin Skin Exam: Dry, Intact, Normal Color, Warm Assessment and Plan (1) Diabetes Status: Acute (2) Diabetic infection of left foot Status: Acute (3) HTN (hypertension) Status: Acute (4) Hyperglycemia Status: Acute - Assessment and Plan (Free Text) Assessment: cont wound care and IV antibiotics
[2018-11-10 16:11] VITALS: RESP 20
[2018-11-10] MEDS: Latanoprost 0.005% Opht SOUTION OU SCH (21:04)
--- NOTE | 2018-11-10 21:51 | PCM.OP ---
Operative Report - Operative Report Date of Surgery/Procedure: 11/07/18 Time of Surgery/Procedure: 09:00 Surgeon: Dr. Jf Fernandez Service Superintendent: Octavia Conway,PGY1 Harper Martin MS4 Anesthesia/Sedation: IV Sedation with local anesthesia Pre-Operative Diagnosis: left heel nonhealing necrotic ulcer Post-Operative Diagnosis: same Indication for Surgery: The patient is a 73 yo male with the above diagnoses. The patient has exhausted all conservative treatment at this time and now requires surgical intervention. The patient signed the consent after careful explanation of risks, benefits, complications and alternatives for surgical procedure. No guarantees were given nor implied. NPO status was confirmed prior to taking patient to the OR. Operative Findings: The patient was brought in to the operating room and placed on the operating room table in a prone position. Timeout was performed for identification of the correct patient and procedure. After induction of IV sedation and administration of 15cc of 1:1 mixture of 2% Lidocaine plain and 0.5% Marcaine plain to the proximal aspect of posterior heel in a v block fashion, the left lower extremity was then prepped and draped in normal sterile manner and the procedure began. No tourniquet was used during the procedure. Procedure/Operation Description: Attention was then directed to the posterior aspect of the left heel where a non-healing necrotic wound measuring approximately 5cm x 3cm x 0.3cm was present. Hyperkeratotic skin was noted on the plantar central forefoot, which was debrided using a sterile #15 blade. A fresh sterile 15 blade and forceps were utilized to excise all necrotic tissue from the wound bed and wound margins. Next, using the Triggertrap debridement probe handle on setting 7, the ulcer was excisonally debrided of superficial fibrotic, necrotic and non-viable tissue until fresh and healthy bleeding granular tissue appeared. The wound was then dressed with silvadene, xeroform, 4x4 gauze, ABD and VIVIEN. Estimated Blood Loss: 5 cc Complications: none Discharge & Condition: The patient tolerated the anesthesia and procedure well and was escorted to the recovery room with vital signs stable and neurovascular status intact to the left foot. Pt will remain in house for IV antibiotics
[2018-11-10] MEDS ORDERED: Insulin Detemir 100 Units/ml Inj SC SCH (22:00)
[2018-11-11] MEDS: Piperacillin/Tazobact 3.375 GM in Sodium Chloride 0.9% 100 ML IVPB SCH ×4 (03:05→21:10)
[2018-11-11] MEDS: Insulin Regular 100 units/ml SC SCH ×4 (06:46→22:12)
--- NOTE | 2018-11-11 08:36 | CP.PCM.PN ---
Subjective - Date & Time of Evaluation Date of Evaluation: 11/10/18 Time of Evaluation: 09:00 - Subjective Subjective: Pt seen and assessed at bedside. No new complaints s/p left heel wound debridement. Explained to pt that he may need extended IV antibiotics. Consults on board. Subjective Review of Systems: Reviewed and no additional remarkable complaints except pain to the left heel. Objective Appears: Anxious, Non-toxic, No Acute Distress. Head Exam: NORMAL INSPECTION, normocephalic. Eye Exam: Normal eye inspection, EOMI, PERRLA. Respiratory Exam: NORMAL BREATHING PATTERN, breath sounds clear bilaterally. Cardiovascular Exam: +S1, +S2. RRR. GI & Abdominal Exam: Soft, non-tender, non-distended. Neurological Exam: Alert, Awake, Oriented x3. Psychiatric exam: Normal mood. Calm and cooperative. Skin Exam: Left heel wrapped in a dressing at this time. c/d/i. Assessment/Impression/Plan: 1.) Infected Diabetic Foot Ulcer -Wound debridement of left heel done. -All consults input appreciated. -Continue IV abx. -Pt may need TCU or [facility] for continuation of IV abx. -Strict glycemic control. -Continue current therapy. Objective - Vital Signs/Intake and Output Vital Signs (last 24 hours): Temp Pulse Resp BP Pulse Ox 97.8 F 87 20 175/86 H 95 11/10/18 23:53 11/10/18 23:59 11/10/18 23:53 11/10/18 23:59 11/10/18 23:53 - Medications Medications: Current Medications Acetaminophen (Tylenol 325mg Tab) 650 mg PO Q6 PRN PRN Reason: Pain, Mild (1-3) Last Admin: 11/08/18 12:24 Dose: 650 mg Acetaminophen (Tylenol 325mg Tab) 650 mg PO Q6 PRN PRN Reason: Pain, Mild (1-3) Al Hydrox/Mg Hydrox/Simethicone (Maalox Plus 30 Ml) 30 ml PO Q6 PRN PRN Reason: Indigestion / Heartburn Last Admin: 11/09/18 16:30 Dose: 30 ml Dextrose (Dextrose 50% Inj) 0 ml IV STAT PRN; Protocol PRN Reason: Hypoglycemia Protocol Dextrose (Glutose 15) 0 gm PO ONCE PRN; Protocol PRN Reason: Hypoglycemia Protocol Dorzolamide HCl (Trusopt) 1 drop OD Q12 [facility] Last Admin: 11/10/18 21:04 Dose: 1 drop Enoxaparin Sodium (Lovenox) 40 mg SC DAILY [facility]; Protocol Last Admin: 11/10/18 08:28 Dose: 40 mg Glucagon (Glucagen Diagnostic Kit) 0 mg IM STAT PRN; Protocol PRN Reason: Hypoglycemia Protocol Piperacillin Sod/Tazobactam (Sod 3.375 gm/ Sodium Chloride) 100 mls @ 100 mls/hr IVPB Q6 [facility]; Protocol Last Admin: 11/11/18 03:05 Dose: 100 mls/hr Dextrose (Dextrose 5% In Water 1000 Ml) 1,000 mls @ 100 mls/hr IV .Q10H [facility] Stop: 11/12/18 06:01 Last Admin: 11/11/18 06:00 Dose: 100 mls/hr Insulin Detemir (Levemir) 24 units SC HS [facility] Insulin Human Regular (Humulin R) 0 units SC ACHS [facility]; Protocol Last Admin: 11/11/18 06:46 Dose: Not Given Latanoprost (Xalatan Opht) 1 drop OU HS [facility] Last Admin: 11/10/18 21:04 Dose: 1 drop Losartan Potassium (Cozaar) 50 mg PO DAILY [facility] Last Admin: 11/10/18 08:29 Dose: 50 mg Metformin HCl (Glucophage) 1,000 mg PO BIDWM [facility] Last Admin: 11/10/18 16:07 Dose: 1,000 mg Pantoprazole Sodium (Protonix Ec Tab) 40 mg PO DAILY [facility] Last Admin: 11/10/18 08:34 Dose: 40 mg Silver Sulfadiazine (Silvadene 1% 50 Gm) 1 applic TOP DAILY [facility] Last Admin: 11/10/18 08:30 Dose: 1 applic Simethicone (Mylicon Chew Tab) 80 mg PO [facility] PRN PRN Reason: Flatulence Sitagliptin Phosphate (Januvia) 50 mg PO BID [facility] Last Admin: 11/10/18 16:07 Dose: 50 mg - Labs Labs: 11/08/18 05:30 11/08/18 05:30 PT 12.0 Seconds (9.8-13.1) 11/06/18 11:10 INR 1.1 11/06/18 11:10 Assessment and Plan (1) Diabetic infection of left foot Status: Acute (2) Hyperglycemia Status: Acute
[2018-11-11] MEDS: Enoxaparin 40 mg Syringe SC SCH (08:46)
[2018-11-11] MEDS: Silver Sulfadiazine 1% CREAM (50 gm) TOP SCH (08:46)
[2018-11-11] MEDS: Pantoprazole 40 mg EC Tab PO SCH (08:47)
[2018-11-11] MEDS: Dorzolamide 2% Ophth Soln OD SCH ×2 (08:48→21:09)
--- NOTE | 2018-11-11 12:29 | CP.PCM.PN ---
Subjective - Date & Time of Evaluation Date of Evaluation: 11/11/18 Time of Evaluation: 12:25 - Subjective Subjective: Podiatry progress note for Dr. Fernandez, 73 y/o male patient with PMHx of HTN, Hypercholesterolemia, Pancreatitis, Chronic Kidney Disease 4 days status post left heel wound debridement with Dr. Fernandez. Patient denies acute overnight events. Patient complains of minimal pain to the area, but denies nausea/vomiting, chest pain, shortness of breath, palpitations. Objective - Vital Signs/Intake and Output Vital Signs (last 24 hours): Temp Pulse Resp BP Pulse Ox 97.8 F 81 20 154/78 H 96 11/11/18 09:04 11/11/18 09:04 11/11/18 09:04 11/11/18 09:04 11/11/18 09:04 - Medications Medications: Current Medications Acetaminophen (Tylenol 325mg Tab) 650 mg PO Q6 PRN PRN Reason: Pain, Mild (1-3) Last Admin: 11/08/18 12:24 Dose: 650 mg Acetaminophen (Tylenol 325mg Tab) 650 mg PO Q6 PRN PRN Reason: Pain, Mild (1-3) Al Hydrox/Mg Hydrox/Simethicone (Maalox Plus 30 Ml) 30 ml PO Q6 PRN PRN Reason: Indigestion / Heartburn Last Admin: 11/09/18 16:30 Dose: 30 ml Dextrose (Dextrose 50% Inj) 0 ml IV STAT PRN; Protocol PRN Reason: Hypoglycemia Protocol Dextrose (Glutose 15) 0 gm PO ONCE PRN; Protocol PRN Reason: Hypoglycemia Protocol Dorzolamide HCl (Trusopt) 1 drop OD Q12 [facility] Last Admin: 11/11/18 08:48 Dose: 1 drop Enoxaparin Sodium (Lovenox) 40 mg SC DAILY [facility]; Protocol Last Admin: 11/11/18 08:46 Dose: 40 mg Glucagon (Glucagen Diagnostic Kit) 0 mg IM STAT PRN; Protocol PRN Reason: Hypoglycemia Protocol Piperacillin Sod/Tazobactam (Sod 3.375 gm/ Sodium Chloride) 100 mls @ 100 ml s/hr IVPB Q6 [facility]; Protocol Last Admin: 11/11/18 09:02 Dose: 100 mls/hr Dextrose (Dextrose 5% In Water 1000 Ml) 1,000 mls @ 100 mls/hr IV .Q10H [facility] Stop: 11/12/18 06:01 Last Admin: 11/11/18 06:00 Dose: 100 mls/hr Insulin Detemir (Levemir) 24 units SC [facility] Insulin Human Regular (Humulin R) 0 units SC [facility]; Protocol Last Admin: 11/11/18 06:46 Dose: Not Given Latanoprost (Xalatan Opht) 1 drop OU HS [facility] Last Admin: 11/10/18 21:04 Dose: 1 drop Losartan Potassium (Cozaar) 50 mg PO DAILY [facility] Last Admin: 11/11/18 08:47 Dose: 50 mg Metformin HCl (Glucophage) 1,000 mg PO BIDWM [facility] Last Admin: 11/11/18 08:48 Dose: 1,000 mg Pantoprazole Sodium (Protonix Ec Tab) 40 mg PO DAILY [facility] Last Admin: 11/11/18 08:47 Dose: 40 mg Silver Sulfadiazine (Silvadene 1% 50 Gm) 1 applic TOP DAILY [facility] Last Admin: 11/11/18 08:46 Dose: 1 applic Simethicone (Mylicon Chew Tab) 80 mg PO [facility] PRN PRN Reason: Flatulence Sitagliptin Phosphate (Januvia) 50 mg PO BID [facility] Last Admin: 11/11/18 08:47 Dose: 50 mg - Labs Labs: 11/08/18 05:30 11/08/18 05:30 PT 12.0 Seconds (9.8-13.1) 11/06/18 11:10 INR 1.1 11/06/18 11:10 - Constitutional Appears: Well, Non-toxic - Head Exam Head Exam: ATRAUMATIC, NORMOCEPHALIC - Eye Exam Eye Exam: Normal appearance - ENT Exam ENT Exam: Mucous Membranes Moist - Respiratory Exam Respiratory Exam: NORMAL BREATHING PATTERN - Cardiovascular Exam Cardiovascular Exam: REGULAR RHYTHM, +S1, +S2 - Extremities Exam Additional comments: B/L Lower Extremity Exam: VASC: DP and PT 1/4 bilaterally likely secondary to edema, Cap refill < 3 seconds to all digits, moderate +2 pitting edema noted to the left lower extremity, positive jovanna wound erythema noted. Temperature gradient warm to warm from proximal to distal on the left NEURO: Protective sensation diminished bilaterally DERM: ulceration noted to the left heel measuring approximately 4.3 cm X 3 cm X 0.1 cm ulcer with mixed fibro-granular based and erythematous wound edges, no malodor, no purulent drainage, no probe to bone, no other lesions or signs of infection noted to bilateral lower extremities MSK: Muscle power 4/5 to all groups b/l, no gross deformities appreciated - Neurological Exam Neurological Exam: Alert, Awake, Oriented x3 Assessment and Plan - Assessment and Plan (Free Text) Assessment: 73 y/o male patient with PMHx of HTN, Hypercholesterolemia, Pancreatitis, Chronic Kidney Disease 4 days status post left heel wound debridement with Dr. Fernandez. Plan: Patient seen and evaluated Plan discussed with Dr. Fernandez Chart, labs and vitals reviewed- elevated blood pressure and blood sugar upon arrival to ED, afebrile, absent leukocytosis WBC 7.3 ESR 62 (11/04/18) Ordered Left foot X-ray: no overt osteo noted Lower Extremity US: no deep venous thrombosis seen Duplex Bilaterally: normal duplex Obtained wound culture and gram stain- beta hemolytic step group B OR Wound Cultures: coagulase negative staphylococcus Left foot MRI w/o contrast: no OM of calcaneus Continue IV Abx per ID; recommends 8-10 of IV abx Continue management per primary team Continue SSD, xeroform DSD for left heel, patient to be in multipodus boots at all times with the heel offloaded Patient awaiting heel off-loading shoe from physical therapy. Shoe has been ordered as per physical therapy and will arrive on Saturday Patient stable for discharge, patient will follow up in podiatry clinic Will continue to follow while patient is in-house
--- NOTE | 2018-11-11 12:44 | US ---
Date of service: 11/11/2018 HISTORY: Abdominal pain COMPARISON: None. TECHNIQUE: Sonographic evaluation of the abdomen. FINDINGS: LIVER: Measures 16.9 cm. Normal echogenicity of the liver parenchyma. No mass. No intrahepatic bile duct dilatation. GALLBLADDER: Unremarkable. No gallstones. COMMON BILE DUCT: Measures 5 mm. No stones. No dilatation. PANCREAS: Unremarkable as visualized. No mass. No ductal dilatation. RIGHT KIDNEY: Measures 11.4cm. Normal echogenicity. No calculus, mass, or hydronephrosis. LEFT KIDNEY: Measures 12.6cm. Normal echogenicity. No calculus or hydronephrosis. Septated cyst versus 2 adjacent cysts in lower pole, measuring 4.1 cm in greatest dimension. No solid mass. SPLEEN: Not identified. Question is raised of prior splenectomy or splenic infarct AORTA: No aneurysmal dilatation. IVC: Unremarkable. OTHER FINDINGS: None. IMPRESSION: Septated cyst versus 2 adjacent simple cysts in lower pole left kidney. Spleen not visualized. Otherwise unremarkable.
[2018-11-11] MEDS: Latanoprost 0.005% Opht SOUTION OU SCH (21:10)
[2018-11-11] MEDS: Insulin Detemir 100 Units/ml Inj SC SCH (22:15)
--- NOTE | 2018-11-12 00:22 | CP.PCM.PN ---
Subjective - Date & Time of Evaluation Date of Evaluation: 11/11/18 Time of Evaluation: 09:00 - Subjective Subjective: Pt seen and assessed at bedside. No new complaints day 2 s/p left heel wound debridement. 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 Levemir was reduced to 24 units and the regular insulin sliding scale was adjusted to low dose. Pt is for [facility] for continuation of antibiotics. Subjective Review of Systems: Reviewed and no additional remarkable complaints except intermittent pain to the left heel. Objective Appears: Anxious, Non-toxic, No Acute Distress. Head Exam: NORMAL INSPECTION, normocephalic. Eye Exam: Normal eye inspection, EOMI, PERRLA. Respiratory Exam: NORMAL BREATHING PATTERN, breath sounds clear bilaterally. Cardiovascular Exam: +S1, +S2. RRR. GI & Abdominal Exam: Soft, non-tender, non-distended. Neurological Exam: Alert, Awake, Oriented x3. Psychiatric exam: Normal mood. Calm and cooperative. Skin Exam: Left heel wrapped in a dressing at this time. c/d/i. Assessment/Impression/Plan: 1.) Infected Diabetic Foot Ulcer -post-op day 2 Wound debridement of left heel done. -All consults input appreciated. -Continue IV abx. -Pt for transfer to [facility] for continuation of IV antibiotics. -Pending order of offloading boot. -Monitor for s/s infection. -Updated insulin schedule: levemir 24 units HS and low dose regular insulin sliding scale [facility]. -Continue current treatment. Objective - Vital Signs/Intake and Output Vital Signs (last 24 hours): Temp Pulse Resp BP Pulse Ox 98.1 F 84 20 158/80 H 98 11/12/18 00:00 11/12/18 00:00 11/12/18 00:00 11/12/18 00:00 11/12/18 00:00 - Medications Medications: Current Medications Acetaminophen (Tylenol 325mg Tab) 650 mg PO Q6 PRN PRN Reason: Pain, Mild (1-3) Last Admin: 11/08/18 12:24 Dose: 650 mg Acetaminophen (Tylenol 325mg Tab) 650 mg PO Q6 PRN PRN Reason: Pain, Mild (1-3) Al Hydrox/Mg Hydrox/Simethicone (Maalox Plus 30 Ml) 30 ml PO Q6 PRN PRN Reason: Indigestion / Heartburn Last Admin: 11/09/18 16:30 Dose: 30 ml Dextrose (Dextrose 50% Inj) 0 ml IV STAT PRN; Protocol PRN Reason: Hypoglycemia Protocol Dextrose (Glutose 15) 0 gm PO ONCE PRN; Protocol PRN Reason: Hypoglycemia Protocol Dorzolamide HCl (Trusopt) 1 drop OD Q12 [facility] Last Admin: 11/11/18 21:09 Dose: 1 drop Enoxaparin Sodium (Lovenox) 40 mg SC DAILY [facility]; Protocol Last Admin: 11/11/18 08:46 Dose: 40 mg Glucagon (Glucagen Diagnostic Kit) 0 mg IM STAT PRN; Protocol PRN Reason: Hypoglycemia Protocol Piperacillin Sod/Tazobactam (Sod 3.375 gm/ Sodium Chloride) 100 mls @ 100 mls/hr IVPB Q6 [facility]; Protocol Last Admin: 11/11/18 21:10 Dose: 100 mls/hr Dextrose (Dextrose 5% In Water 1000 Ml) 1,000 mls @ 100 mls/hr IV .Q10H [facility] Stop: 11/12/18 06:01 Last Admin: 11/11/18 16:30 Dose: Not Given Insulin Detemir (Levemir) 24 units SC HS [facility] Last Admin: 11/11/18 22:15 Dose: 24 units Insulin Human Regular (Humulin R) 0 units SC [facility]; Protocol Last Admin: 11/11/18 22:12 Dose: Not Given Latanoprost (Xalatan Opht) 1 drop OU HS [facility] Last Admin: 11/11/18 21:10 Dose: 1 drop Losartan Potassium (Cozaar) 50 mg PO DAILY [facility] Last Admin: 11/11/18 08:47 Dose: 50 mg Metformin HCl (Glucophage) 1,000 mg PO BIDWM [facility] Last Admin: 11/11/18 16:29 Dose: 1,000 mg Pantoprazole Sodium (Protonix Ec Tab) 40 mg PO DAILY [facility] Last Admin: 11/11/18 08:47 Dose: 40 mg Silver Sulfadiazine (Silvadene 1% 50 Gm) 1 applic TOP DAILY [facility] Last Admin: 11/11/18 08:46 Dose: 1 applic Simethicone (Mylicon Chew Tab) 80 mg PO [facility] PRN PRN Reason: Flatulence Sitagliptin Phosphate (Januvia) 50 mg PO BID [facility] Last Admin: 11/11/18 16:29 Dose: 50 mg - Labs Labs: 11/08/18 05:30 11/08/18 05:30 PT 12.0 Seconds (9.8-13.1) 11/06/18 11:10 INR 1.1 11/06/18 11:10 Assessment and Plan (1) Diabetic infection of left foot Status: Acute (2) Hyperglycemia Status: Acute
[2018-11-12] MEDS: Piperacillin/Tazobact 3.375 GM in Sodium Chloride 0.9% 100 ML IVPB SCH ×4 (03:11→21:26)
[2018-11-12] MEDS: Insulin Regular 100 units/ml SC SCH ×4 (06:41→21:34)
[2018-11-12] MEDS: Dorzolamide 2% Ophth Soln OD SCH ×2 (08:14→21:27)
[2018-11-12] MEDS: Enoxaparin 40 mg Syringe SC SCH (08:14)
[2018-11-12] MEDS: Pantoprazole 40 mg EC Tab PO SCH (08:14)
[2018-11-12] MEDS: Silver Sulfadiazine 1% CREAM (50 gm) TOP SCH (08:15)
--- NOTE | 2018-11-12 11:55 | CP.PCM.PN ---
Subjective - Date & Time of Evaluation Date of Evaluation: 11/12/18 Time of Evaluation: 11:52 - Subjective Subjective: Podiatry progress note for Dr. Fernandez, 73 y/o male patient with PMHx of HTN, Hypercholesterolemia, Pancreatitis, Chronic Kidney Disease 5 days status post left heel wound debridement with Dr. Fernandez. Patient complains of minimal pain, however has decreased over time. Denies f/n/v/sob. Objective - Vital Signs/Intake and Output Vital Signs (last 24 hours): Temp Pulse Resp BP Pulse Ox 98.1 F 85 20 158/83 H 95 11/12/18 08:09 11/12/18 08:14 11/12/18 08:09 11/12/18 08:14 11/12/18 08:09 - Medications Medications: Current Medications Acetaminophen (Tylenol 325mg Tab) 650 mg PO Q6 PRN PRN Reason: Pain, Mild (1-3) Last Admin: 11/08/18 12:24 Dose: 650 mg Acetaminophen (Tylenol 325mg Tab) 650 mg PO Q6 PRN PRN Reason: Pain, Mild (1-3) Al Hydrox/Mg Hydrox/Simethicone (Maalox Plus 30 Ml) 30 ml PO Q6 PRN PRN Reason: Indigestion / Heartburn Last Admin: 11/09/18 16:30 Dose: 30 ml Dextrose (Dextrose 50% Inj) 0 ml IV STAT PRN; Protocol PRN Reason: Hypoglycemia Protocol Dextrose (Glutose 15) 0 gm PO ONCE PRN; Protocol PRN Reason: Hypoglycemia Protocol Dorzolamide HCl (Trusopt) 1 drop OD Q12 [facility] Last Admin: 11/12/18 08:14 Dose: 1 drop Enoxaparin Sodium (Lovenox) 40 mg SC DAILY [facility]; Protocol Last Admin: 11/12/18 08:14 Dose: 40 mg Glucagon (Glucagen Diagnostic Kit) 0 mg IM STAT PRN; Protocol PRN Reason: Hypoglycemia Protocol Piperacillin Sod/Tazobactam (Sod 3.375 gm/ Sodium Chloride) 100 mls @ 100 mls/hr IVPB Q6 [facility]; Protocol Last Admin: 11/12/18 09:09 Dose: 100 mls/hr Insulin Detemir (Levemir) 24 units SC HS [facility] Last Admin: 11/11/18 22:15 Dose: 24 units Insulin Human Regular (Humulin R) 0 units SC [facility]; Protocol Last Admin: 11/12/18 06:41 Dose: Not Given Latanoprost (Xalatan Opht) 1 drop OU HS [facility] Last Admin: 11/11/18 21:10 Dose: 1 drop Losartan Potassium (Cozaar) 50 mg PO DAILY [facility] Last Admin: 11/12/18 08:14 Dose: 50 mg Metformin HCl (Glucophage) 1,000 mg PO BIDWM [facility] Last Admin: 11/12/18 08:13 Dose: 1,000 mg Pantoprazole Sodium (Protonix Ec Tab) 40 mg PO DAILY [facility] Last Admin: 11/12/18 08:14 Dose: 40 mg Silver Sulfadiazine (Silvadene 1% 50 Gm) 1 applic TOP DAILY [facility] Last Admin: 11/12/18 08:15 Dose: 1 applic Simethicone (Mylicon Chew Tab) 80 mg PO [facility] PRN PRN Reason: Flatulence Sitagliptin Phosphate (Januvia) 50 mg PO BID [facility] Last Admin: 11/12/18 08:13 Dose: 50 mg Tramadol HCl (Ultram) 50 mg PO Q6 PRN PRN Reason: Pain, moderate (4-7) - Labs Labs: 11/08/18 05:30 11/08/18 05:30 PT 12.0 Seconds (9.8-13.1) 11/06/18 11:10 INR 1.1 11/06/18 11:10 - Constitutional Appears: Well, Non-toxic - Head Exam Head Exam: ATRAUMATIC, NORMOCEPHALIC - Eye Exam Eye Exam: Normal appearance - ENT Exam ENT Exam: Mucous Membranes Moist - Cardiovascular Exam Cardiovascular Exam: REGULAR RHYTHM - Extremities Exam Additional comments: B/L Lower Extremity Exam: VASC: DP and PT 1/4 bilaterally likely secondary to edema, Cap refill < 3 seconds to all digits, moderate +2 pitting edema noted to the left lower extremity, positive jovanna wound erythema noted. Temperature gradient warm to warm from proximal to distal on the left NEURO: Protective sensation diminished bilaterally DERM: ulceration noted to the left heel measuring approximately 4.0 cm X 3 cm X 0.1 cm ulcer with mixed fibrobased and granular wound edges, no malodor, no purulent drainage, no probe to bone, no other lesions or signs of infection noted to bilateral lower extremities MSK: Muscle power 4/5 to all groups b/l, no gross deformities appreciate - Neurological Exam Neurological Exam: Alert, Awake, Normal Gait Assessment and Plan - Assessment and Plan (Free Text) Assessment: 73 y/o male patient with PMHx of HTN, Hypercholesterolemia, Pancreatitis, Chronic Kidney Disease 5 days status post left heel wound debridement with Dr. Fernandez. Plan: Patient seen and evaluated Plan discussed with Dr. Fernandez Chart, labs and vitals reviewed- elevated blood pressure and blood sugar upon arrival to ED, afebrile, absent leukocytosis WBC 7.3 ESR 62 (11/04/18) Ordered Left foot X-ray: no overt osteo noted Lower Extremity US: no deep venous thrombosis seen Duplex Bilaterally: normal duplex Obtained wound culture and gram stain- beta hemolytic step group B OR Wound Cultures: coagulase negative staphylococcus Left foot MRI w/o contrast: no OM of calcaneus Continue IV Abx per ID; recommends 8-10 of IV abx Continue management per primary team Continue SSD, xeroform DSD for left heel, patient to be in multipodus boots at all times with the heel offloaded Patientto continue ambulating in heel offloading shoe. Patient showed verbal understanding. Advised patient to offload the heel at all times Patient stable for discharge, patient will follow up in podiatry clinic Will continue to follow while patient is in-house
[2018-11-12 13:01] LABS: SQUAMOUS EPITHIAL < 1 /hpf (0-5); URINE BACTERIA RARE (<OCC); URINE BILIRUBIN NEGATIVE (NEGATIVE); URINE BLOOD SMALL (NEGATIVE); URINE CLARITY SLIGHTY-CLOUDY (Clear); URINE COLOR YELLOW (YELLOW); URINE GLUCOSE (UA) 50 mg/dL (NEGATIVE); URINE LEUKOCYTE ESTERASE NEG Leu/uL (Negative); URINE PROTEIN 100 mg/dL (NEGATIVE); URINE UROBILINOGEN 0.2-1.0 mg/dL (0.2-1.0)
--- NOTE | 2018-11-12 14:13 | CP.PCM.PN ---
Subjective - Date & Time of Evaluation Date of Evaluation: 11/12/18 Time of Evaluation: 08:00 - Subjective Subjective: NAD NO NEW COMPLAINTS SEEN ON ROUNDS LABS REVIEWED ORDERS SIGNED Objective - Vital Signs/Intake and Output Vital Signs (last 24 hours): Temp Pulse Resp BP Pulse Ox 98.1 F 85 20 158/83 H 95 11/12/18 08:09 11/12/18 08:14 11/12/18 08:09 11/12/18 08:14 11/12/18 08:09 - Medications Medications: Current Medications Acetaminophen (Tylenol 325mg Tab) 650 mg PO Q6 PRN PRN Reason: Pain, Mild (1-3) Last Admin: 11/08/18 12:24 Dose: 650 mg Acetaminophen (Tylenol 325mg Tab) 650 mg PO Q6 PRN PRN Reason: Pain, Mild (1-3) Al Hydrox/Mg Hydrox/Simethicone (Maalox Plus 30 Ml) 30 ml PO Q6 PRN PRN Reason: Indigestion / Heartburn Last Admin: 11/09/18 16:30 Dose: 30 ml Dextrose (Dextrose 50% Inj) 0 ml IV STAT PRN; Protocol PRN Reason: Hypoglycemia Protocol Dextrose (Glutose 15) 0 gm PO ONCE PRN; Protocol PRN Reason: Hypoglycemia Protocol Dorzolamide HCl (Trusopt) 1 drop OD Q12 [facility] Last Admin: 11/12/18 08:14 Dose: 1 drop Enoxaparin Sodium (Lovenox) 40 mg SC DAILY [facility]; Protocol Last Admin: 11/12/18 08:14 Dose: 40 mg Glucagon (Glucagen Diagnostic Kit) 0 mg IM STAT PRN; Protocol PRN Reason: Hypoglycemia Protocol Piperacillin Sod/Tazobactam (Sod 3.375 gm/ Sodium Chloride) 100 mls @ 100 m ls/hr IVPB Q6 [facility]; Protocol Last Admin: 11/12/18 09:09 Dose: 100 mls/hr Insulin Detemir (Levemir) 24 units SC HS [facility] Last Admin: 11/11/18 22:15 Dose: 24 units Insulin Human Regular (Humulin R) 0 units SC [facility]; Protocol Last Admin: 11/12/18 12:38 Dose: 1 unit Latanoprost (Xalatan Opht) 1 drop OU HS [facility] Last Admin: 11/11/18 21:10 Dose: 1 drop Losartan Potassium (Cozaar) 50 mg PO DAILY [facility] Last Admin: 11/12/18 08:14 Dose: 50 mg Metformin HCl (Glucophage) 1,000 mg PO BIDWM [facility] Last Admin: 11/12/18 08:13 Dose: 1,000 mg Pantoprazole Sodium (Protonix Ec Tab) 40 mg PO DAILY [facility] Last Admin: 11/12/18 08:14 Dose: 40 mg Silver Sulfadiazine (Silvadene 1% 50 Gm) 1 applic TOP DAILY [facility] Last Admin: 11/12/18 08:15 Dose: 1 applic Simethicone (Mylicon Chew Tab) 80 mg PO [facility] PRN PRN Reason: Flatulence Sitagliptin Phosphate (Januvia) 50 mg PO BID [facility] Last Admin: 11/12/18 08:13 Dose: 50 mg Tramadol HCl (Ultram) 50 mg PO Q6 PRN PRN Reason: Pain, moderate (4-7) - Labs Labs: 11/08/18 05:30 11/08/18 05:30 PT 12.0 Seconds (9.8-13.1) 11/06/18 11:10 INR 1.1 11/06/18 11:10 - Constitutional Appears: Non-toxic, Chronically Ill - Head Exam Head Exam: ATRAUMATIC, NORMAL INSPECTION, NORMOCEPHALIC - Eye Exam Eye Exam: EOMI, Normal appearance, PERRL Pupil Exam: NORMAL ACCOMODATION, PERRL - ENT Exam ENT Exam: Mucous Membranes Moist, Normal Exam - Neck Exam Neck Exam: Full ROM, Normal Inspection. absent: Lymphadenopathy - Respiratory Exam Respiratory Exam: Clear to Ausculation Bilateral, NORMAL BREATHING PATTERN - Cardiovascular Exam Cardiovascular Exam: REGULAR RHYTHM, +S1, +S2. absent: Murmur - GI/Abdominal Exam GI & Abdominal Exam: Soft, Normal Bowel Sounds. absent: Tenderness - Rectal Exam Rectal Exam: Deferred - Exam Exam: NORMAL INSPECTION - Extremities Exam Extremities Exam: Full ROM, Normal Capillary Refill, Normal Inspection. absent: Joint Swelling, Pedal Edema - Back Exam Back Exam: NORMAL INSPECTION - Neurological Exam Neurological Exam: Alert, Awake, CN II-XII Intact, Normal Gait, Oriented x3 - Psychiatric Exam Psychiatric exam: Normal Affect, Normal Mood - Skin Skin Exam: Dry, Intact, Normal Color, Warm Additional comments: DRESSING IN PLACE LEFT FOOT NO MALODOR TOES WARM Assessment and Plan (1) Diabetes Status: Acute (2) Diabetic infection of left foot Status: Acute (3) HTN (hypertension) Status: Acute (4) Hyperglycemia Status: Acute - Assessment and Plan (Free Text) Assessment: IMPROVING SLOWLY CONT RX PER DR ASHA HERRING
[2018-11-12] MEDS: Latanoprost 0.005% Opht SOUTION OU SCH (21:27)
[2018-11-12] MEDS: Insulin Detemir 100 Units/ml Inj SC SCH (21:29)
--- NOTE | 2018-11-13 01:30 | CP.PCM.PN ---
Subjective - Date & Time of Evaluation Date of Evaluation: 11/12/18 Time of Evaluation: 10:45 - Subjective Subjective: Pt seen and assessed at bedside. Day 3 s/p left heel wound debridement. Pt reports mild dysuria; order placed for UA and urine C&S. Also c/o pain at surgical site on left heel, worsening in intensity. Pt is for [facility], pending offloading boot. Subjective Review of Systems: Reviewed and no additional remarkable complaints except pain to the left heel. Objective Appears: Anxious, Non-toxic, No Acute Distress. Head Exam: NORMAL INSPECTION, normocephalic. Eye Exam: Normal eye inspection, EOMI, PERRLA. Respiratory Exam: NORMAL BREATHING PATTERN, breath sounds clear bilaterally. Cardiovascular Exam: +S1, +S2. RRR. GI & Abdominal Exam: Soft, non-tender, non-distended. Neurological Exam: Alert, Awake, Oriented x3. Psychiatric exam: Normal mood. Calm and cooperative. Skin Exam: Left heel wrapped in a dressing at this time. c/d/i. Assessment/Impression/Plan: 1.) Infected Diabetic Foot Ulcer -post-op day 3 Wound debridement of left heel done. -c/o worsening pain today, added ultram 50 mg PO Q6h. -c/o mild dysuria; UA and urine culture ordered. Encouraged PO hydration. -All consults input appreciated. -Continue IV abx; ID on consult. -Still pending transfer to [facility] for continuation of IV antibiotics. -Awaiting order of offloading boot. -Strict glycemic control. Objective - Vital Signs/Intake and Output Vital Signs (last 24 hours): Temp Pulse Resp BP Pulse Ox 98.4 F 87 20 169/88 H 97 11/13/18 00:05 11/13/18 00:05 11/13/18 00:05 11/13/18 00:05 11/13/18 00:05 - Medications Medications: Current Medications Acetaminophen (Tylenol 325mg Tab) 650 mg PO Q6 PRN PRN Reason: Pain, Mild (1-3) Last Admin: 11/08/18 12:24 Dose: 650 mg Acetaminophen (Tylenol 325mg Tab) 650 mg PO Q6 PRN PRN Reason: Pain, Mild (1-3) Al Hydrox/Mg Hydrox/Simethicone (Maalox Plus 30 Ml) 30 ml PO Q6 PRN PRN Reason: Indigestion / Heartburn Last Admin: 11/09/18 16:30 Dose: 30 ml Dextrose (Dextrose 50% Inj) 0 ml IV STAT PRN; Protocol PRN Reason: Hypoglycemia Protocol Dextrose (Glutose 15) 0 gm PO ONCE PRN; Protocol PRN Reason: Hypoglycemia Protocol Dorzolamide HCl (Trusopt) 1 drop OD Q12 [facility] Last Admin: 11/12/18 21:27 Dose: 1 drop Enoxaparin Sodium (Lovenox) 40 mg SC DAILY [facility]; Protocol Last Admin: 11/12/18 08:14 Dose: 40 mg Glucagon (Glucagen Diagnostic Kit) 0 mg IM STAT PRN; Protocol PRN Reason: Hypoglycemia Protocol Piperacillin Sod/Tazobactam (Sod 3.375 gm/ Sodium Chloride) 100 mls @ 100 mls/hr IVPB Q6 [facility]; Protocol Last Admin: 11/12/18 21:26 Dose: 100 mls/hr Insulin Detemir (Levemir) 24 units SC HS [facility] Last Admin: 11/12/18 21:29 Dose: 24 units Insulin Human Regular (Humulin R) 0 units SC ACHS [facility]; Protocol Last Admin: 11/12/18 21:34 Dose: Not Given Latanoprost (Xalatan Opht) 1 drop OU HS [facility] Last Admin: 11/12/18 21:27 Dose: 1 drop Losartan Potassium (Cozaar) 50 mg PO DAILY [facility] Last Admin: 11/12/18 08:14 Dose: 50 mg Metformin HCl (Glucophage) 1,000 mg PO BIDWM [facility] Last Admin: 11/12/18 16:07 Dose: 1,000 mg Pantoprazole Sodium (Protonix Ec Tab) 40 mg PO DAILY [facility] Last Admin: 11/12/18 08:14 Dose: 40 mg Silver Sulfadiazine (Silvadene 1% 50 Gm) 1 applic TOP DAILY [facility] Last Admin: 11/12/18 08:15 Dose: 1 applic Simethicone (Mylicon Chew Tab) 80 mg PO [facility] PRN PRN Reason: Flatulence Sitagliptin Phosphate (Januvia) 50 mg PO BID [facility] Last Admin: 11/12/18 16:07 Dose: 50 mg Tramadol HCl (Ultram) 50 mg PO Q6 PRN PRN Reason: Pain, moderate (4-7) - Labs Labs: 11/08/18 05:30 11/08/18 05:30 PT 12.0 Seconds (9.8-13.1) 11/06/18 11:10 INR 1.1 11/06/18 11:10 Assessment and Plan (1) Diabetic infection of left foot Status: Acute (2) Hyperglycemia Status: Acute
[2018-11-13] MEDS: Piperacillin/Tazobact 3.375 GM in Sodium Chloride 0.9% 100 ML IVPB SCH ×2 (04:01→09:39)
[2018-11-13] MEDS: Insulin Regular 100 units/ml SC SCH ×2 (06:44→12:45)
[2018-11-13 07:08] LABS: HEMOGLOBIN 11.9 g/dL (12.0-18.0); MEAN CELL VOLUME 86.7 fl (80.0-94.0); MEAN CORPUSCULAR HEMOGLOBIN 29.9 pg (27.0-31.0); MEAN CORPUSCULAR HGB CONC 34.5 g/dL (33.0-37.0); RBC 3.98 Mil/uL (4.40-5.90); RED CELL DISTRIBUTION WIDTH 14.8 % (11.5-14.5); WHITE BLOOD COUNT 6.3 K/uL (4.8-10.8)
[2018-11-13 07:22] LABS: CALCIUM 9.3 mg/dL (8.4-10.2)
[2018-11-13 07:52] VITALS: TEMP 97.8; O2SAT 99
[2018-11-13] MEDS: Pantoprazole 40 mg EC Tab PO SCH (08:07)
[2018-11-13] MEDS: Enoxaparin 40 mg Syringe SC SCH (08:07)
[2018-11-13] MEDS: Silver Sulfadiazine 1% CREAM (50 gm) TOP SCH (08:08)
[2018-11-13] MEDS: Dorzolamide 2% Ophth Soln OD SCH (08:08)
[2018-11-13 12:46] VITALS: BP 170/85; PULSE 95
--- NOTE | 2018-11-13 21:02 | CP.PCM.DIS ---
Provider - Provider Date of Admission: 11/04/18 02:46 Attending physician: Feliz Antoine MD Consults: 11/04/18 01:42 Podiatry Consult Stat Comment: Consulting Provider: Jf Fernandez Consulting Physician: Jf Fernandez Reason for Consult: heel ulcer 11/05/18 14:20 Infectious Disease Consult Routine Comment: Consulting Provider: Pierre Goldberg Consulting Physician: Pierre Goldberg Reason for Consult: Infected diabetic foot ulcer 11/06/18 10:28 Cardiology Consult Routine Comment: Consulting Provider: Juhi Zhou Consulting Physician: Juhi Zhou Reason for Consult: cardiac clearance, uncontrolled DM, HTN Time Spent in preparation of Discharge (in minutes): 30 Diagnosis - Discharge Diagnosis (1) Diabetic infection of left foot Status: Acute (2) Hyperglycemia Status: Acute Hospital Course - Lab Results Lab Results: Micro Results 11/12/18 12:40 Urine,Clean Catch Urine Culture - Final No Growth (<1,000 CFU/ML) 11/07/18 16:00 Foot - Left Gram Stain - Final 11/07/18 16:00 Foot - Left Wound Culture - Final Coagulase Neg Staphylococcus 11/04/18 01:25 Blood Blood Culture - Final NO GROWTH AFTER 5 DAYS 11/04/18 01:25 Blood Gram Stain - Final TEST NOT PERFORMED 11/04/18 00:55 Blood Blood Culture - Final NO GROWTH AFTER 5 DAYS 11/04/18 00:55 Blood Gram Stain - Final TEST NOT PERFORMED 11/04/18 02:10 Foot - Left Gram Stain - Final 11/04/18 02:10 Foot - Left Wound Culture - Final Beta Hemolytic Strep Group B Most Recent Lab Values WBC 6.3 K/uL (4.8-10.8) 11/13/18 06:19 RBC 3.98 Mil/uL (4.40-5.90) L 11/13/18 06:19 Hgb 11.9 g/dL (12.0-18.0) L 11/13/18 06:19 Hct 34.5 % (35.0-51.0) L 11/13/18 06:19 MCV 86.7 fl (80.0-94.0) 11/13/18 06:19 MCH 29.9 pg (27.0-31.0) 11/13/18 06:19 MCHC 34.5 g/dL (33.0-37.0) 11/13/18 06:19 RDW 14.8 % (11.5-14.5) H 11/13/18 06:19 Plt Count 306 K/uL (130-400) 11/13/18 06:19 MPV 7.8 fl (7.2-11.7) 11/06/18 06:10 Neut % (Auto) 58.9 % (50.0-75.0) 11/06/18 06:10 Lymph % (Auto) 29.7 % (20.0-40.0) 11/06/18 06:10 [place] % (Auto) 6.0 % (0.0-10.0) 11/06/18 06:10 Eos % (Auto) 4.6 % (0.0-4.0) H 11/06/18 06:10 Baso % (Auto) 0.8 % (0.0-2.0) 11/06/18 06:10 Neut # (Auto) 4.6 K/uL (1.8-7.0) 11/06/18 06:10 Lymph # (Auto) 2.3 K/uL (1.0-4.3) 11/06/18 06:10 Nicol[place] # (Auto) 0.5 K/uL (0.0-0.8) 11/06/18 06:10 Eos # (Auto) 0.4 K/uL (0.0-0.7) 11/06/18 06:10 Baso # (Auto) 0.1 K/uL (0.0-0.2) 11/06/18 06:10 ESR 64 mm/hr (0-20) H 11/05/18 06:29 PT 12.0 Seconds (9.8-13.1) 11/06/18 11:10 INR 1.1 11/06/18 11:10 Sodium 139 mmol/l (132-148) 11/13/18 06:19 Potassium 3.8 MMOL/L (3.6-5.0) 11/13/18 06:19 Chloride 105 mmol/L (98-107) 11/13/18 06:19 Carbon Dioxide 26 mmol/L (22-30) 11/13/18 06:19 Anion Gap 12 (10-20) 11/13/18 06:19 BUN 23 mg/dl (9-20) H 11/13/18 06:19 Creatinine 1.5 mg/dl (0.8-1.5) 11/13/18 06:19 Est GFR ( Amer) 56 11/13/18 06:19 Est GFR (Non-Af Amer) 46 11/13/18 06:19 POC Glucose (mg/dL) 173 mg/dL (65-110) H 11/13/18 11:30 Random Glucose 67 mg/dL (75-110) L 11/13/18 06:19 Hemoglobin A1c 10.2 % (4.2-6.5) H 11/05/18 06:29 Lactic Acid 1.4 mmol/L (0.7-2.1) 11/04/18 00:55 Calcium 9.3 mg/dL (8.4-10.2) 11/13/18 06:19 Total Bilirubin 0.6 mg/dl (0.2-1.3) 11/08/18 05:30 AST 17 U/L (17-59) 11/08/18 05:30 ALT 17 U/L (21-72) L D 11/08/18 05:30 Alkaline Phosphatase 70 U/L (38-126) 11/08/18 05:30 C-Reactive Protein 27.80 mg/L (0.0-9.9) H 11/05/18 06:29 Total Protein 6.3 G/DL (6.3-8.2) 11/08/18 05:30 Albumin 3.3 g/dL (3.5-5.0) L 11/08/18 05:30 Globulin 3.0 gm/dL (2.2-3.9) 11/08/18 05:30 Albumin/Globulin Ratio 1.1 (1.0-2.1) 11/08/18 05:30 Triglycerides 85 mg/DL (0-149) 11/05/18 06:29 Cholesterol 130 mg/dL (0-199) 11/05/18 06:29 LDL Cholesterol Direct 73 mg/dL (0-129) 11/05/18 06:29 HDL Cholesterol 33 MG/DL (30-70) 11/05/18 06:29 Procalcitonin < 0.05 NG/ML (0.19-0.49) L 11/05/18 06:29 Urine Color Yellow (YELLOW) 11/12/18 12:40 Urine Clarity Slighty-cloudy (Clear) 11/12/18 12:40 Urine pH 6.0 (5.0-8.0) 11/12/18 12:40 Ur Specific Darragh 1.015 (1.003-1.030) 11/12/18 12:40 Urine Protein 100 mg/dL (NEGATIVE) 11/12/18 12:40 Urine Glucose (UA) 50 mg/dL (NEGATIVE) 11/12/18 12:40 Urine Ketones Negative mg/dL (NEGATIVE) 11/12/18 12:40 Urine Blood Small (NEGATIVE) 11/12/18 12:40 Urine Nitrate Negative (NEGATIVE) 11/12/18 12:40 Urine Bilirubin Negative (NEGATIVE) 11/12/18 12:40 Urine Urobilinogen 0.2-1.0 mg/dL (0.2-1.0) 11/12/18 12:40 Ur Leukocyte Esterase Neg Mansoor/uL (Negative) 11/12/18 12:40 Urine RBC (Auto) 4 /hpf (0-3) H 11/12/18 12:40 Urine Microscopic WBC 1 /hpf (0-5) 11/12/18 12:40 Ur Squamous Epith Cells < 1 /hpf (0-5) 11/12/18 12:40 Urine Bacteria Rare (<OCC) 11/12/18 12:40 Stool Occult Blood Negative (NEGATIVE) 11/08/18 17:10 Vancomycin Trough 18.9 ug/mL (5.0-10.0) H 11/07/18 23:04 - Hospital Course Hospital Course: Pt was admitted for infected diabetic wound to the left heel. He has an I&D done and was treated with antibiotics. Medically, he was stabilized and showed better glycemic control. The pt was discharged to [facility] for continued abx therapy. Discharge Exam - Head Exam Head Exam: ATRAUMATIC, NORMAL INSPECTION, NORMOCEPHALIC - Eye Exam Eye Exam: EOMI, Normal appearance, PERRL Pupil Exam: NORMAL ACCOMODATION Discharge Plan - Discharge Medications Prescriptions: amLODIPine [Norvasc] 10 mg PO DAILY #30 tab Piperacill/Tazo 3.375gm in Dex [Zosyn 3.375 Gm IV] 3.375 gm IVPB Q6 7 Days bag - Follow Up Plan Condition: FAIR Disposition: REHAB FACILITY/REHAB UNIT Instructions: Diabetic Foot Ulcer (DC), Hyperglycemia, Adult (DC), Debridement of a Wound or Burn (DC) Additional Instructions: hacer margoth con greenberg primario dentro de 1 semana Referrals: Jf Fernandez MD [Staff Provider] - Cyndi Dao [Family Provider] - Pierre Goldberg MD [Staff Provider] - Juhi Zhou MD [Staff Provider] -
== END 2018-11-13 16:26 | DRG 623 ==
LOC: H.ER 22:43 → H.ERHOLD 11-04 02:46 → H.MEDSURG1 11-04 23:24
PROVIDERS: ADMIT Family Medicine; ATTEND Family Medicine
PROC: 0JBR0ZZ Excision of Left Foot Subcutaneous Tissue and Fascia, Open Approach (ICD-10-PCS; principal; 2018-11-07 08:15)
DX: E11.621 Type 2 diabetes mellitus with foot ulcer (principal); I12.0 Hypertensive chronic kidney disease with stage 5 chronic kidney disease or end stage renal disease; L97.428 Non-pressure chronic ulcer of left heel and midfoot with other specified severity; E11.22 Type 2 diabetes mellitus with diabetic chronic kidney disease; N18.5 Chronic kidney disease, stage 5; E11.65 Type 2 diabetes mellitus with hyperglycemia; Z79.4 Long term (current) use of insulin; E78.00 Pure hypercholesterolemia, unspecified; E11.649 Type 2 diabetes mellitus with hypoglycemia without coma; K21.9 Gastro-esophageal reflux disease without esophagitis; H54.7 Unspecified visual loss